=== PATIENT | male | born 1975 | race Caucasian/White ===

== ENCOUNTER 2017-08-20 16:55 | Day surgery (SDC) | payer OTHER ==
[2017-08-20 12:16] VITALS: TEMP 98
--- NOTE | 2017-08-20 13:21 | P.PCN ---
Date of Procedure: 08/20/17 Procedure(s) Performed: Procedure: Total colonoscopy. Preoperative diagnosis: Chronic intermittent rectal bleeding. Postoperative diagnosis: Posterior anal fissure not bleeding at the time of this exam, otherwise, exam to the cecum within normal limits. Preparation: HalfLytely prep. Sedation: Was provided by anesthesia. Brief clinical history: The patient is a 42-year-old male who is scheduled for this evaluation because of chronic intermittent rectal bleeding. This evaluation is to assess for neoplasia, inflammatory bowel disease or other pathology. Procedure: With the patient on his left lateral decubitus position and after informed consent and adequate sedation, the perianal area was inspected and it showed the posterior fissure which was not bleeding. No fistulas. There were no masses felt on digital rectal examination. The Olympus CFQ 160L video colonoscope was then inserted in the rectum in the usual fashion and advanced to the cecum. The mucosa appeared healthy. No polyps or tumors were seen or any obvious diverticular disease or other pathology. I retroflexed the endoscope in the rectum before the endoscope was withdrawn. The patient tolerated the procedure well. Plan: The patient was reassured. Discussed dietary measures and local care for his fissure. Further plans based on his course. I will keep you updated on his progress.
[2017-08-20 14:20] VITALS: BP 121/74; PULSE 78; RESP 20
[~2017-08-20 16:55] MED LIST: LACTATED RINGERS 1,000 ML IV ONE; LIDOCAINE 1% 20 ML VIAL (10MG/ML) FOR IV START INTRADERMA ONE; PROPOFOL 10 MG/ML 20 ML VIAL IV ONE
== END 2017-08-20 18:55 | disposition home or self-care (01) ==
LOC: ORWHC2ENDO 16:55
DX: K60.2 Anal fissure, unspecified (principal); J45.909 Unspecified asthma, uncomplicated; Z91.040 Latex allergy status
CPT/HCPCS: 45378; J2704

== ENCOUNTER 2018-01-22 18:05 | Observation (INO) | payer BC ==
[2018-01-22] MEDS ORDERED: SODIUM CHLORIDE 0.9% 1,000 ML IV STA (19:32)
[2018-01-22] MEDS ORDERED: MECLIZINE 12.5 MG TAB PO STA (19:32)
[2018-01-22] MEDS: SODIUM CHLORIDE 0.9% 1,000 ML IV STA ×2 (20:25→23:08)
[2018-01-22 20:44] LABS: INR 1.1 (<1.2); Prothrombin Time 10.4 sec (9.0-12.0)
[2018-01-22 20:46] LABS: Basophils % (A) 0 %; Eosinophils # (A) 0.3 k/uL (0-0.7); Eosinophils % (A) 3 %; HGB 14.3 gm/dL (13.0-17.5); Lymphocytes # (A) 1.8 k/uL (1.0-4.8); Lymphocytes % (A) 18 %; MCH 30.4 pg (25.0-35.0); MCHC 31.7 g/dL (31.0-37.0); Mean Platelet Volume 7.5; Monocytes # (A) 0.5 k/uL (0-1.0); Monocytes % (A) 5 %; Neutrophils # (A) 7.3 k/uL (1.3-7.7); Neutrophils % (A) 73 %; Platelet Count 279 k/uL (150-450); RBC 4.69 m/uL (4.30-5.90); RDW 12.1 % (11.5-15.5); WBC 10.1 k/uL (3.8-10.6)
[2018-01-22 20:49] LABS: ALT 32 U/L (21-72); AST 22 U/L (17-59); Albumin 4.5 g/dL (3.5-5.0); Alkaline Phosphatase 62 U/L (38-126); Anion Gap 6 mmol/L; Blood Urea Nitrogen 14 mg/dL (9-20); Calcium 9.5 mg/dL (8.4-10.2); Carbon Dioxide 26 mmol/L (22-30); Chloride 106 mmol/L (98-107); Glucose 107 mg/dL (74-99); Potassium 4.2 mmol/L (3.5-5.1); Sodium 138 mmol/L (137-145); Total Bilirubin 0.8 mg/dL (0.2-1.3); Total Protein 7.2 g/dL (6.3-8.2)
--- NOTE | 2018-01-22 21:01 | XR ---
EXAMINATION: XR chest 2V DATE AND TIME: 01/22/2018 8:10 PM CLINICAL INDICATION: Pneumonia TECHNIQUE: PA and lateral COMPARISON: None. FINDINGS: The lungs are clear. The pleural spaces are negative. The cardiac silhouette is not enlarged. The remainder of the mediastinal silhouette is unremarkable. The skeletal structures and soft tissues are negative for acute findings. IMPRESSION: NO ACUTE PROCESS.
--- NOTE | 2018-01-22 21:03 | CT ---
EXAMINATION: CT brain wo con DATE AND TIME: 01/22/2018 8:15 PM CLINICAL INDICATION: Pain Dizziness. TECHNIQUE: Standard departmental protocol. DLP: 1006.5 mGy-cm COMPARISON: None. FINDINGS: The calvarium is intact. There is no intracranial hemorrhage. There is no intracranial mass or mass effect. No definite new intra-axial or extra-axial attenuation defect. The paranasal sinuses, middle ear cavities, and mastoid sinus air cells are clear. The orbits are unremarkable. IMPRESSION: NO ACUTE PROCESS.
--- NOTE | 2018-01-22 21:43 | ED ---
Dizziness HPI - General Chief Complaint: Dizziness Stated Complaint: dizziness, nausea, vomiting Time Seen by Provider: 01/22/18 19:17 Source: patient Mode of arrival: ambulatory Limitations: no limitations - History of Present Illness Initial Comments: 42 years old male comes in with the dizziness he said he been dizzy for last 2 days he sent he feels that his gait is quite unsteady he been nauseous he has been using quite a large amount of Benadryl he said he has a ALLERGIES and he been using Benadryl 20 tablets every day and night is unable to walk a straight line is concerned about unsteady gait. He denies any headaches no blurred vision no slurred speech no chest pain no abdominal pain he is nauseous and he states he no symptoms of TIA or CVA - Related Data Home Medications Medication Instructions Recorded Confirmed FLUoxetine HCL [PROzac] 20 mg PO DAILY 01/22/18 01/22/18 Allergies Allergy/AdvReac Type Severity Reaction Status Date / Time latex AdvReac Anaphylaxis Verified 01/22/18 18:23 Review of Systems ROS Statement: Those systems with pertinent positive or pertinent negative responses have been documented in the HPI. ROS Other: All systems not noted in ROS Statement are negative. Past Medical History Past Medical History: Asthma History of Any Multi-Drug Resistant Organisms: None Reported Past Surgical History: No Surgical Hx Reported Past Psychological History: Bipolar, Depression Smoking Status: Current every day smoker Past Alcohol Use History: Occasional Past Drug Use History: Marijuana General Exam - General Exam Comments Initial Comments: General: The patient is awake and alert, GCS is 15, he looks dehydrated pale and tired Skin: Skin is warm and dry and no rashes or lesions are noted. Eye: Pupils are equal, round and reactive to light, extra-ocular movements are intact; there is normal conjunctiva bilaterally. Ears, nose, mouth and throat: It is some fluid behind the tympanic membrane on one side Neck: The neck is supple, there is no tenderness , no signs of any meningitis Cardiovascular: There is a regular rate and rhythm. No murmur, rub or gallop is appreciated. Respiratory: To auscultation bilateral, no wheezing no rhonchi no distress respiratory salas noticed Gastrointestinal: Soft, non-distended, non-tender abdomen without masses or organomegaly noted. There is no rebound or guarding present. Bowel sounds are unremarkable. Back: There is no tenderness to palpation in the midline. There is no obvious deformity. Musculoskeletal: Normal ROM, no tenderness, There is no pedal edema. There is no calf tenderness or swelling. No cords were appreciated. Neurological: CN II-XII intact, Cranial nerves III through XII are intact. There are no obvious motor or sensory deficits. Coordination appears grossly intact. Speech is normal. Psychiatric: Cooperative, appropriate mood & affect Limitations: no limitations Course Vital Signs 01/22/18 01/22/18 01/22/18 18:18 20:24 21:38 Temperature 98.1 F Pulse Rate 69 63 67 Respiratory 20 18 18 Rate Blood Pressure 140/91 153/86 124/72 O2 Sat by Pulse 99 97 98 Oximetry Upon reassessment noticed CBC, INR, troponin, comp his metabolic panel, head CT , chest x-ray are unremarkable EKG is normal sinus ventricular rate is 60 CT interval is 118 QRS duration is 114 QT/QTc is 48/108 review of this EKG does not reveal any ST elevation or ST depression noticed some told the face and now V4 V5 - Reevaluation(s) Reevaluation #2: Centering his dizziness and now unsteady gait and concerned about brainstem infarction patient be admitted to Dr. Miller service will consult neurology 01/22/18 21:47 Medical Decision Making - Lab Data Result diagrams: 01/22/18 20:22 01/22/18 20:22 Lab Results 01/22/18 01/22/18 01/22/18 Range/Units 20:22 20:22 20:22 WBC 10.1 (3.8-10.6) k/uL RBC 4.69 (4.30-5.90) m/uL Hgb 14.3 (13.0-17.5) gm/dL Hct 45.0 (39.0-53.0) % MCV 96.0 (80.0-100.0) fL MCH 30.4 (25.0-35.0) pg MCHC 31.7 (31.0-37.0) g/dL RDW 12.1 (11.5-15.5) % Plt Count 279 (150-450) k/uL Neutrophils % 73 % Lymphocytes % 18 % Monocytes % 5 % Eosinophils % 3 % Basophils % 0 % Neutrophils # 7.3 (1.3-7.7) k/uL Lymphocytes # 1.8 (1.0-4.8) k/uL Monocytes # 0.5 (0-1.0) k/uL Eosinophils # 0.3 (0-0.7) k/uL Basophils # 0.0 (0-0.2) k/uL PT (9.0-12.0) sec INR (<1.2) Sodium 138 (137-145) mmol/L Potassium 4.2 (3.5-5.1) mmol/L Chloride 106 (98-107) mmol/L Carbon Dioxide 26 (22-30) mmol/L Anion Gap 6 mmol/L BUN 14 (9-20) mg/dL Creatinine 0.70 (0.66-1.25) mg/dL Est GFR (CKD-EPI)AfAm >90 (>60 ml/min/1.73 sqM) Est GFR (CKD-EPI)NonAf >90 (>60 ml/min/1.73 sqM) Glucose 107 H (74-99) mg/dL Plasma Lactic Acid Gray 0.9 (0.7-2.0) mmol/L Calcium 9.5 (8.4-10.2) mg/dL Total Bilirubin 0.8 (0.2-1.3) mg/dL AST 22 (17-59) U/L ALT 32 (21-72) U/L Alkaline Phosphatase 62 (38-126) U/L Troponin I (0.000-0.034) ng/mL Total Protein 7.2 (6.3-8.2) g/dL Albumin 4.5 (3.5-5.0) g/dL 01/22/18 01/22/18 Range/Units 20:22 20:22 WBC (3.8-10.6) k/uL RBC (4.30-5.90) m/uL Hgb (13.0-17.5) gm/dL Hct (39.0-53.0) % MCV (80.0-100.0) fL MCH (25.0-35.0) pg MCHC (31.0-37.0) g/dL RDW (11.5-15.5) % Plt Count (150-450) k/uL Neutrophils % % Lymphocytes % % Monocytes % % Eosinophils % % Basophils % % Neutrophils # (1.3-7.7) k/uL Lymphocytes # (1.0-4.8) k/uL Monocytes # (0-1.0) k/uL Eosinophils # (0-0.7) k/uL Basophils # (0-0.2) k/uL PT 10.4 (9.0-12.0) sec INR 1.1 (<1.2) Sodium (137-145) mmol/L Potassium (3.5-5.1) mmol/L Chloride (98-107) mmol/L Carbon Dioxide (22-30) mmol/L Anion Gap mmol/L BUN (9-20) mg/dL Creatinine (0.66-1.25) mg/dL Est GFR (CKD-EPI)AfAm (>60 ml/min/1.73 sqM) Est GFR (CKD-EPI)NonAf (>60 ml/min/1.73 sqM) Glucose (74-99) mg/dL Plasma Lactic Acid Gray (0.7-2.0) mmol/L Calcium (8.4-10.2) mg/dL Total Bilirubin (0.2-1.3) mg/dL AST (17-59) U/L ALT (21-72) U/L Alkaline Phosphatase (38-126) U/L Troponin I <0.012 (0.000-0.034) ng/mL Total Protein (6.3-8.2) g/dL Albumin (3.5-5.0) g/dL Disposition Clinical Impression: Dizziness, Unsteady gait Disposition: ADMITTED IP TO THIS [facility] Condition: Good Referrals: Osvaldo Devlin MD [Primary Care Provider] - 1-2 days
[2018-01-22] MEDS ORDERED: NALOXONE 0.4 MG/ML 1 ML VIAL IV PRN (21:48)
[2018-01-22] MEDS ORDERED: ONDANSETRON 4 MG/2 ML VIAL IVP PRN (21:48)
[2018-01-22] MEDS ORDERED: ACETAMINOPHEN TAB 325 MG TAB PO PRN (21:48)
[2018-01-22] MEDS ORDERED: MECLIZINE 25 MG TAB PO PRN (21:51)
[2018-01-22] MEDS ORDERED: LORATADINE 10 MG TAB PO STA (21:52)
[2018-01-22] MEDS ORDERED: predniSONE 20 MG TAB PO STA (21:52)
[2018-01-22 22:05] LABS: Appearance,Urine Clear (Clear); Bilirubin,Urine Negative (Negative); Blood,Urine Negative (Negative); Color,Urine Light Yellow; Glucose,Urine (UA) Negative (Negative); Ketones,Urine Negative (Negative); Leukocyte Esterase,Urine Negative (Negative); Nitrite,Urine Negative (Negative); Protein,Urine Negative (Negative); Specific Gravity,Urine 1.009 (1.001-1.035); Urobilinogen,Urine <2.0 mg/dL (<2.0)
[2018-01-22 22:16] LABS: Amphetamine Screen,Urine Not Detected (NotDetected); Barbiturate Screen,Urine Not Detected (NotDetected); Benzodiazepines Screen,Urine Not Detected (NotDetected); Cocaine Screen,Urine Not Detected (NotDetected); Methadone Screen, Urine Not Detected (NotDetected); Opiate Screen,Urine Not Detected (NotDetected); Oxycodone Screen, Urine Not Detected (NotDetected); Phencyclidine Screen,Urine Not Detected (NotDetected); Tricyclic Antidepressant,Urine Not Detected (NotDetected); Urn Cannabinoid Scrn Detected (NotDetected)
[2018-01-22] MEDS ORDERED: TEMAZEPAM 15 MG CAP PO PRN (23:00)
[2018-01-22] MEDS ORDERED: HYDROcodone/APAP 5-325MG 1 EACH TAB PO PRN (23:00)
[2018-01-22] MEDS ORDERED: HYDROmorphone 1 MG/ML 1 ML SYRINGE IVP PRN (23:01)
[2018-01-22] MEDS: NICOTINE 14MG/24HR PATCH TRANSDERM SCH (23:08)
[2018-01-22] MEDS: PANTOPRAZOLE 40 MG/10 ML VIAL IVP SCH (23:23)
[2018-01-22] MEDS ORDERED: LORazepam 2 MG/ML INJ IV PRN (23:55)
--- NOTE | 2018-01-23 00:03 | HP ---
HISTORY AND PHYSICAL DATE OF SERVICE: 01/22/2018 CHIEF COMPLAINT: Dizziness, nausea and vomiting. HISTORY OF PRESENT ILLNESS: This 42-year-old gentleman with a past medical history of asthma, history of bipolar depression, history of nicotine dependence and THC, being followed by Dr. Devlin in the outpatient setting, apparently was dizzy for the last 2 days. Patient was quite unsteady and the patient also had patient had itching and the patient was taking a large amount of Benadryl. Patient is throwing up and patient came to [facility] and was admitted for further evaluation and treatment. There is no history of any fever, rigors, chills. No history of headache, loss of consciousness, seizures. Initial CT scan showed no acute abnormality. PAST MEDICAL HISTORY: History of asthma, history of bipolar depression, history nicotine dependence. MEDICATIONS PRIOR TO ADMISSION: Include Prozac 20 mg daily. ALLERGIES: LATEX. FAMILY HISTORY: No history of heart disease or strokes in the family. SOCIAL HISTORY: History of smoking. No history of alcohol intake. REVIEW OF SYSTEMS: ENT: No diminished hearing, diminished vision. Otherwise as mentioned earlier. CARDIOVASCULAR: No angina, palpitations. RESPIRATORY: No cough or hemoptysis. GI: As mentioned earlier. : No dysuria. NERVOUS: No numbness or weakness. ALLERGY/IMMUNOLOGY: No asthma or hay fever. MUSCULOSKELETAL: As mentioned earlier. HEMATOLOGY/ONCOLOGY: No history of anemia. ENDOCRINE: No history of diabetes, hypothyroidism. CONSTITUTIONAL: As mentioned earlier. DERMATOLOGY: Negative. RHEUMATOLOGY: Negative. PSYCHIATRY: As mentioned earlier. PHYSICAL EXAMINATION: Alert, oriented x3. Pulse 66, blood pressure 140/82, respirations 16, temperature 97.7, pulse ox 98 percent on room air. HEENT: Conjunctivae normal. Oral mucosa moist. NECK: No jugular venous distention. No carotid bruits. No lymph node enlargement. CARDIOVASCULAR: S1, S2 muffled. RESPIRATORY: Breath sounds diminished in the bases. No rhonchi. No crackles. ABDOMEN: Soft, nontender. No mass palpable. LEGS: No edema. No swelling. NERVOUS SYSTEM: Higher functions as mentioned earlier. Moves all 4 limbs. No focal motor or sensory deficits. LYMPHATIC: No lymphadenopathy in neck or axillae. SKIN: No ulcer, rash or bleeding. LABS: CBC, BMP within normal limits. Glucose 107. THC is positive. ASSESSMENT: 1. Incessant vomiting, possible acute gastritis. 2. Asthma. 3. Bipolar, anxiety and depression. 4. History of nicotine dependence. 5. History of THC. RECOMMENDATIONS AND DISCUSSION: In this 42-year-old gentleman who presented with multiple complex medical issues, we will monitor the patient closely, continue the current medical management and continue symptomatic treatment. Will initiate proton pump inhibitors, symptomatic treatment. Otherwise, otherwise, smoking cessation advice has been given. Neuro checks. We will closely monitor. Prognosis guarded because of multiple complex medical issues. Further recommendations to follow. Neurology evaluation also has been sought and I discussed with the patient. Smoking cessation has been advised. See orders for further details. MMODL / IJN: [id number] /
[2018-01-23 07:10] LABS: Basophils % (A) 0 %; Eosinophils # (A) 0.1 k/uL (0-0.7); Eosinophils % (A) 1 %; HCT 42.7 % (39.0-53.0); HGB 14.3 gm/dL (13.0-17.5); Lymphocytes # (A) 1.3 k/uL (1.0-4.8); Lymphocytes % (A) 14 %; MCH 31.7 pg (25.0-35.0); MCHC 33.4 g/dL (31.0-37.0); Mean Platelet Volume 7.9; Monocytes # (A) 0.4 k/uL (0-1.0); Monocytes % (A) 4 %; Neutrophils # (A) 7.2 k/uL (1.3-7.7); Neutrophils % (A) 80 %; Platelet Count 258 k/uL (150-450); RDW 11.8 % (11.5-15.5); WBC 8.9 k/uL (3.8-10.6)
[2018-01-23 07:30] LABS: Anion Gap 5 mmol/L; Calcium 8.8 mg/dL (8.4-10.2); Carbon Dioxide 26 mmol/L (22-30); Chloride 108 mmol/L (98-107); Glucose 120 mg/dL (74-99); Sodium 139 mmol/L (137-145)
[2018-01-23 07:43] LABS: Blood Urea Nitrogen 12 mg/dL (9-20); Potassium 4.5 mmol/L (3.5-5.1)
[2018-01-23] MEDS: NICOTINE 14MG/24HR PATCH TRANSDERM SCH (09:43)
[2018-01-23] MEDS: FLUoxetine HCL 20 MG CAP PO SCH (09:50)
[2018-01-23] MEDS: PANTOPRAZOLE 40 MG/10 ML VIAL IVP SCH ×2 (09:50→20:32)
[2018-01-23] MEDS: ALPRAZolam 0.25 MG TAB PO PRN ×2 (09:57→20:32)
--- NOTE | 2018-01-23 15:33 | P.CN ---
Psychiatric Consult - . Consult date: 01/23/18 Consult:: 01/23/18 15:07 Identification: Patient is a 42-year-old male who presented to the emergency room with reports of dizziness, nausea and vomiting after having been taking 20- 30 tabs of Benadryl per day over the last 3 weeks. Reason for Consult: Suicidal ideation, depression History of Present Illness: Patient states that he's had ALLERGY problems for greater than 20 years and has seen multiple physicians in the area. He states that he is to see someone at [facility] due to what he describes as either hives and/or rashes when he wears certain clothing, describes 2 weeks ago was wearing R sleeves at work and started having a rash and itching and states that this is when he began taking the Benadryl. States that he is been feeling like a zombie and was feeling dizzy and unbalanced yesterday and presented to the emergency room. Patient states that he responded to the question regarding suicidal ideation about a time in the past when he had those thoughts and it had a shot gun laying across his lap. Patient denies any history of suicide attempts. Patient describes from the fourth to the 11th grade being on multiple medications such as Ritalin, and Prozac for ADHD and bipolar disorder. Patient states that he was drunk to the point where he was drooling and a zombie during school. He states that he was admitted here once when he was 19 years of age but can't tell me what the reason was for. Patient states that he used to cut himself and burning himself at that time but these were not in suicide attempts. Patient states as a child he would destroy property get into fights with people and states that he graduated with honors. Patient has a difficult time endorsing manic symptoms in the past and does not give any history of manic symptoms as an adult. Patient does not endorse a history of psychotic symptoms, paranoia, or anxiety and states that he has episodes of depression that have not been severe as an adult and last only 1-2 days. Patient has not been on medication since around the age of 19 and states that several months ago he sought out his primary care physician who started him on Prozac as the patient was feeling under a lot of stress at work due to the itching and other difficulties that he's had. Patient states that he also has had some stress with his children. Patient does not endorse a history of psychotic symptoms, anxiety symptoms and most of his psychiatric history is from 19 years of age and younger. Patient has not been treated since the age of 19 and has no other admissions. Patient states that he restarted Prozac at 20 mg and feels that it is been beneficial in helping him with his stress. He states that he is feeling less overwhelmed, his sleep remains good and he is been able to work. Past Psychiatric History: Patient reports one prior psychiatric admission here at the age of 19, he denies any suicide attempt history and states that he was on multiple medications from the age of 11 to about 17. Patient states that he stopped all his medications when he was 19 years of age and just recently restarted Prozac 20 mg a day prescribed by his primary care physician with he says good results and no side effects Past Medical/Surgical History: Patient had asthma as a child Family History: Patient states is no psychiatric history in the family, but alcohol and drug abuse are on both paternal and maternal side of the family and completed suicides. Social History: Patient's parents are both alive and , he has 1 brother. He completed high school states he graduated with honors and attended college for several years but never completed it. 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 Patient states he's worked in [employer] for the last 8 years. His first marriage lasted 10 years he has 2 children ages 10 and 15, he's been for the second time for one year. He and his live with her 4 children from her prior marriage ages 9-15 and his 2 children are with them 50% of the time. He reports no financial problems and relationship with his is a good one. He reports no abuse history Substance Use History: Patient states that he began using alcohol as an adult and probably drinks less than a sixpack a week, he used marijuana since the age of 11 almost on a daily basis and then stated to me that he dislikes falling asleep sober because he has nightmares. Patient states he used cocaine from age [age] on an infrequent basis. States that he's tried methamphetamines in the past, opiates, benzodiazepine, and amphetamines in the past and no IV drug use. States that he's tried synthetic care when in the past. Patient states that he smokes occasionally. Legal History: Patient states as a minor he was charged with multiple counts of property damage, fighting Mental status: Appearance/Attitude: Patient has multiple tattoos, is sitting up in bed in no acute distress, makes intermittent eye contact and was cooperative Behavior: Patient did not display any psychomotor agitation or retardation, patient was not itching or scratching during my exam. Speech/Language: Patient's speech is spontaneous of normal volume and rhythm and he is coherent Thought Process: Patient is goal-directed, no loose association or flight of ideas Thought Content: Patient denies any auditory or visual hallucinations and no delusions or paranoid ideation were elicited. Patient states that he has had difficulties with ALLERGIES over the last 20 years is seen multiple admissions in the area and is to see a professional benefits sales consultant at [facility] some time in the near future. Patient has been taking 20-30 tabs of Benadryl a day for the last several weeks continue trazodone his itching and rash on his forearms. Patient states that he has no difficulty sleeping at home had recently been feeling overwhelmed and stressed due to the itching as well as difficulties with his children and so he restarted Prozac one month ago with good results. Suicidal/Homicidal Ideation: Patient denied any current suicidal or homicidal ideation Sensorium/Cognition: Patient is alert and oriented to person, place, and time and his recent and remote memory are grossly intact Mood/Affect: Patient's mood is euthymic and his affect is appropriate Insight/Judgment: Patient insight and judgment are fair Assessment: Patient presented to the emergency room was side effects from taking 20-30 tabs of Benadryl daily for the last several weeks to try to control itching and a rash which he states he's had difficulties with for the last number of years. Patient states that he is had difficulties with ALLERGIC reactions but can't say what he is ALLERGIC to, stating perhaps at his own sweat , states that some clothing makes it bothered, states that wearing a watch. Patient has a history of psychiatric treatment prior to finishing high school on multiple medications for ADHD, depression and he states diagnosis of bipolar disorder but stopped all of his medications at the age of 19. Patient has not been on medication since that time and recently restarted Prozac due to feeling stressed and overwhelmed at home and due to his itching and rash. Patient is currently not expressing any psychotic symptoms, depressive symptoms no current suicidal or homicidal ideation and no evidence of manic symptoms or anxiety. 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 Patient can continue on his Prozac and follow-up with his primary care physician as needed. Patient is aware of outpatient counseling services should he require such in the future. Would be cautious in using benzodiazepines in this patient and suggests not discharging him on such. Patient had no other concerns at this time and I will sign off the case.
--- NOTE | 2018-01-23 16:43 | PN ---
PROGRESS NOTE DATE OF SERVICE: 01/23/2018 This 42-year-old gentleman who was admitted with incessant vomiting, acute gastritis is being closely monitored. The patient is n.p.o. at this time. No chest pain. No palpitations. No fever. The patient had some dizziness yesterday. Patient has some itching. The patient is not orthostatic hypotension. PHYSICAL EXAM: Alert and oriented x3. Pulse is 69, blood pressure is 140/92, respiration 12, temperature is normal, pulse ox 97% on room air. HEENT: Conjunctivae normal. Oral mucosa dry. NECK: No jugular venous distention. No carotid bruit. No lymph node enlargement. CARDIOVASCULAR: S1, S2. RESPIRATORY: Breath sounds diminished in the bases. No rhonchi. No crackles. ABDOMEN: Soft, mild diffuse discomfort on epigastrium. Otherwise no mass palpable. LEGS: No edema, no swelling. NERVOUS SYSTEM: Higher functions as mentioned earlier. Moves all four limbs. No focal motor deficits. LYMPHATICS: No lymphadenopathy in the neck, axillae, groin. SKIN: No ulcer, rash or bleeding. LABS: CBC and BMP within normal limits. Drug screen noted. ASSESSMENT: 1. Incessant vomiting, possible acute gastritis. 2. Dehydration. 3. History of asthma. 4. Bipolar, anxiety and depression. 5. History of nicotine dependence. 6. History of THC. RECOMMENDATIONS AND DISCUSSION: I recommend to continue current management and symptomatic treatment. I would recommend increase the p.o. intake and continue conservative line of treatment. Guarded prognosis because of multiple complex medical issues. Further recommendations to follow. MMODL / IJN: [id number] /
--- NOTE | 2018-01-23 21:24 | MR ---
EXAMINATION TYPE: MR brain wo con DATE OF EXAM: 01/23/2018 COMPARISON: CT 01/22/2018 at 8:07 PM HISTORY: Severe dizziness x 3 days, headaches Standard multiplanar, multisequence MRI departmental protocol Multiplanar, multisequence images of the were acquired. Diffusion weighted imaging was performed. FINDINGS: There is no restricted diffusion to suggest acute or subacute infarction. There is no mass or mass effect or signal characteristic abnormality. The vascular flow void pattern is negative. Trudy marcial of the intra-axial and extra-axial examination is unremarkable. Calvarium is negative. The paranasal sinuses and mastoid sinus air cells and middle ear cavities are clear. Orbits are unremarkable. IMPRESSION: NO ACUTE PROCESS.
[2018-01-24 00:45] VITALS: TEMP 97.7
[2018-01-24 07:54] LABS: Basophils % (A) 0 %; Eosinophils # (A) 0.2 k/uL (0-0.7); Eosinophils % (A) 3 %; HCT 43.3 % (39.0-53.0); HGB 13.6 gm/dL (13.0-17.5); Lymphocytes # (A) 1.6 k/uL (1.0-4.8); Lymphocytes % (A) 23 %; MCH 30.1 pg (25.0-35.0); MCHC 31.5 g/dL (31.0-37.0); MCV 95.7 fL (80.0-100.0); Mean Platelet Volume 7.3; Monocytes # (A) 0.4 k/uL (0-1.0); Monocytes % (A) 5 %; Neutrophils # (A) 4.5 k/uL (1.3-7.7); Neutrophils % (A) 67 %; Platelet Count 236 k/uL (150-450); RBC 4.52 m/uL (4.30-5.90); RDW 11.9 % (11.5-15.5); WBC 6.8 k/uL (3.8-10.6)
[2018-01-24] MEDS: ALPRAZolam 0.25 MG TAB PO PRN (07:56)
[2018-01-24 08:05] LABS: Anion Gap 5 mmol/L; Blood Urea Nitrogen 11 mg/dL (9-20); Calcium 9.1 mg/dL (8.4-10.2); Carbon Dioxide 28 mmol/L (22-30); Chloride 106 mmol/L (98-107); Glucose 100 mg/dL (74-99); Potassium 4.5 mmol/L (3.5-5.1); Sodium 139 mmol/L (137-145)
--- NOTE | 2018-01-24 09:35 | CONS ---
CONSULTATION DATE OF CONSULTATION: 01/23/2018. CHIEF COMPLAINT: Dizziness. HISTORY OF PRESENT ILLNESS: Mr. Wu is a 42-year-old, male, who is being evaluated today on 01/23/2018 by the neurology service per the request of Dr. Miller for dizziness. The patient states that he woke up to go to work yesterday and noticed that he is significantly dizzy and off balance. He reported motion sensation but denies any actual spinning. When the symptoms did not improve throughout the day, he was brought into [facility] Emergency Room for further workup and management. He states that he has been taking significant amounts of Benadryl over the counter due to symptoms of itching on his body. He states that he was exposed to excessive heat at work and was having a lot of itching in his torso and upper extremities. The Benadryl was helping but he was having to take excessive amounts of over the counter capsules. A CT scan of the brain was done in the emergency room, which was normal. His CBC, comprehensive metabolic profile, cardiac enzymes and urinalysis were all reviewed and were normal. His urine drug screen was positive for marijuana. At the time of my evaluation, he is lying in his bed and appears to be in no acute distress. He reports significant improvement in his symptoms, but he still has some feeling of disequilibrium. He denies any tinnitus or hearing loss. He denies any previous symptoms similar to this. PAST MEDICAL HISTORY: Asthma, bipolar disorder. FAMILY HISTORY: Noncontributory. SOCIAL HISTORY: He does admit to occasional marijuana use. He has a history of smoking. He denies any alcohol or IV drug use. HOME MEDICATIONS: Prozac. ALLERGIES: LATEX. REVIEW OF SYSTEM: As mentioned above and otherwise negative. PHYSICAL EXAM: Vital signs show a temperature of 98.4, pulse 96, respirations 16, blood pressure 169/90. GENERAL APPEARANCE: The patient is a well-developed male, who appears to be in no acute distress. HEENT: Normocephalic, atraumatic, no facial asymmetry is seen. Extraocular muscles are intact with no nystagmus seen. Neck is supple with no masses felt. CARDIOVASCULAR: Regular rate and rhythm. ABDOMEN: Nontender, nondistended. Extremities showed no edema or clubbing. NEUROLOGICAL EXAM: The patient is alert, aware and oriented x3. Speech and language are normal. Strength is full in all 4 extremities. Sensory exam was normal to light touch in all 4 extremities. No tremors or seizure-like activity is seen. No facial asymmetry is noticed on cranial nerve testing. IMPRESSION: 1. Dizziness. 2. Gait instability. 3. Medication adverse effect. 4. Elevated blood pressure. RECOMMENDATION: The patient's dizziness and disequilibrium has improved but has not resolved. I do believe that this is an adverse effect of the Benadryl that he has been taking as mentioned above. I did recommend to him to discontinue the Benadryl and he should be evaluated for the significant itching that he has been experiencing. I will order an MRI of the brain and EEG to rule out any other etiologies. Continue the rest of your current workup and management. I will continue to follow with you. Further recommendations to follow. Thank you for allowing me to participate in the care of your patient. If you have any questions, please feel free to contact me. FADY / JOYA: [id number] /
[2018-01-24] MEDS: NICOTINE 14MG/24HR PATCH TRANSDERM SCH (10:41)
[2018-01-24] MEDS: FLUoxetine HCL 20 MG CAP PO SCH (10:53)
[2018-01-24] MEDS: PANTOPRAZOLE 40 MG/10 ML VIAL IVP SCH (10:54)
[2018-01-24 11:01] VITALS: BP 143/81; PULSE 69; RESP 16
[2018-01-24] MEDS ORDERED: HYDROmorphone 2 MG TAB PO PRN (15:39)
--- NOTE | 2018-01-24 18:32 | DS ---
DISCHARGE SUMMARY FINAL DIAGNOSES: 1. Incessant vomiting with possible acute gastritis, improved. 2. Dehydration, improved. 3. History of asthma. 4. History of bipolar, anxiety and depression. 5. History of nicotine dependence. 6. History of THC. DISCHARGE DISPOSITION: The patient will be discharged in stable condition with guarded prognosis. HISTORY OF PRESENT ILLNESS: This 42-year-old gentleman who presented with multiple complex medical issues including ovarian cyst, vomiting and gastritis. Patient treated symptomatically. Patient on Protonix and IV fluids. Patient improved significantly. Patient was evaluated by neurology, Dr. Velasco. MRI of the brain did not show any acute process. EEG is pending at this time. Dr. Velasco recommended outpatient followup. On exam, vitals are stable. Cardiovascular: S1, S2. Abdomen: Soft. Nervous System: No focal deficit. The patient also had dizziness and gait dysfunction, possibly secondary to medication effect. The patient was using multiple doses of Benadryl. DISCHARGE ADVICE: 1. Diet is cardiac. 2. Activity limited until follow up. 3. Follow with Dr. Devlin in 2-3 days. 4. Follow with [facility]. 5. Follow up with Dr. Velasco as recommended. MEDICATIONS: 1. Prozac 20 mg p.o. daily. 2. Tylenol p.r.n. 3. Habitrol 14 daily. 4. Zofran 4 mg q.8h p.r.n. 5. Protonix 40 mg p.o. b.i.d. Once again, the patient is discharged in stable condition with guarded prognosis. MMODL / IJN: [id number] /
--- NOTE | 2018-01-27 20:27 | EEG ---
ELECTROENCEPHALOGRAM REPORT DATE OF SERVICE: 01/24/2018 REASON FOR TESTING: Dizziness. DESCRIPTION OF THE PROCEDURE: This EEG was performed using a 21-channel digital electroencephalograph, following international 10-20 system. DESCRIPTION OF THE RECORDING: From the beginning of the tracing, and with the patient's eyes closed, the background rhythm was mostly consisting of 9-10 Hz alpha frequency in the posterior occipital leads. No obvious asymmetry is seen. Photic stimulation was performed with a good driving response seen. No pathological waves were elicited. Hyperventilation was not performed. Rare movement artifacts are seen. The patient remains awake throughout the tracing. No epileptiform discharges were seen. His EKG lead showed a regular rate and rhythm. INTERPRETATION: This awake EEG can be considered within normal limits. There was no asymmetry seen. No epileptiform discharges were noticed. The absence of epileptiform discharges does not rule out the diagnosis of epilepsy; therefore clinical correlation is recommended. MMCARITOL / IJAnna: [id number] /
== END 2018-01-24 18:45 | disposition home or self-care (01) ==
LOC: EC 18:05 → 3SUR 21:48
PROVIDERS: ADMIT Hospitalist; ATTEND Hospitalist
DX: R11.2 Nausea with vomiting, unspecified (principal); E86.0 Dehydration; J45.909 Unspecified asthma, uncomplicated; F31.9 Bipolar disorder, unspecified; F41.9 Anxiety disorder, unspecified; Z87.891 Personal history of nicotine dependence; R42 Dizziness and giddiness; R26.81 Unsteadiness on feet; L29.9 Pruritus, unspecified; R03.0 Elevated blood-pressure reading, without diagnosis of hypertension; T45.0X5A Adverse effect of antiallergic and antiemetic drugs, initial encounter; Z79.899 Other long term (current) drug therapy; Z91.040 Latex allergy status; Z81.1 Family history of alcohol abuse and dependence; Z81.3 Family history of other psychoactive substance abuse and dependence
CPT/HCPCS: 99285; 96376 ×2; 96361 ×3; 96374; 96375; 36415; 95816; 93005; 80053; 80048 ×2; 83605; 84484; 85025 ×3; 85610; 81003; 80306; 71046; 70450; 70551; G0378 ×3; J1170; J7512; C9113 ×3

== ENCOUNTER 2018-09-14 23:10 | Emergency (ER) | payer BC ==
[2018-09-14] MEDS ORDERED: methylPREDNISolone SOD SUCCI 125 MG/2 ML VIAL IV STA (23:39)
[2018-09-14] MEDS ORDERED: diphenhydrAMINE 50 MG/ML 1 ML VIAL IVP STA (23:39)
[2018-09-14] MEDS ORDERED: FAMOTIDINE 20 MG/2 ML VIAL IV STA (23:39)
[2018-09-15] MEDS ORDERED: KETOROLAC 30 MG/ML 1 ML VIAL IVP STA (00:28)
--- NOTE | 2018-09-15 00:28 | ED ---
General Adult HPI - General Source: patient, family, RN notes reviewed Mode of arrival: ambulatory Limitations: no limitations <Andrea Moreland P - Last Filed: 09/15/18 01:15> <Katarzyna Venegas P - Last Filed: 09/15/18 02:35> - General Chief complaint: Skin/Abscess/Foreign Body Stated complaint: itching all over Time Seen by Provider: 09/14/18 23:21 - History of Present Illness Initial comments: 43-year-old female presents to the emergency department for a chief itching. Patient states this has been ongoing for years. States that tonight it is keeping him awake and he feels like his skin is burning. Patient states he has been evaluated by multiple dermatology specialists without a diagnosis. There is possibility that he is ALLERGIC to his sweat. Patient unsure about what helps at this point. States he would just like something to help him sleep. Denies any swelling of the lips tongue or throat. Denies any fevers or chills. Patient has no other complaints at this time including shortness of breath, chest pain, abdominal pain, nausea or vomiting, headache, or visual changes. (Andrea Moreland) - Related Data Home Medications Medication Instructions Recorded Confirmed FLUoxetine HCL [PROzac] 40 mg PO DAILY 09/14/18 09/14/18 Multivitamin,Therapeutic [Thera] 1 tab PO DAILY 09/14/18 09/14/18 Previous Rx's Medication Instructions Recorded hydrOXYzine HCL [Atarax] 25 mg PO TID PRN #20 tab 09/15/18 Allergies Allergy/AdvReac Type Severity Reaction Status Date / Time latex AdvReac Anaphylaxis Verified 09/14/18 23:27 Review of Systems ROS Other: All systems not noted in ROS Statement are negative. <Andrea Moreland P - Last Filed: 09/15/18 01:15> ROS Other: All systems not noted in ROS Statement are negative. <Katarzyna Venegas P - Last Filed: 09/15/18 02:35> ROS Statement: Those systems with pertinent positive or pertinent negative responses have been documented in the HPI. Past Medical History Past Medical History: Asthma Additional Past Medical History / Comment(s): Athletic Asthma as a child. Itching-pt. supposed to have appt. at [facility] to investigate. Smoker- occasionaly. Social Drinker History of Any Multi-Drug Resistant Organisms: None Reported Past Surgical History: No Surgical Hx Reported Past Anesthesia/Blood Transfusion Reactions: No Reported Reaction Past Psychological History: Bipolar, Depression Smoking Status: Current some day smoker Past Alcohol Use History: Occasional Past Drug Use History: Marijuana - Past Family History Father Family Medical History: Cancer, Hypertension Mother Family Medical History: Cancer, Diabetes Mellitus, Hypertension, Thyroid Disorder Additional Family Medical History / Comment(s): Vertigo <Andrea Moreland P - Last Filed: 09/15/18 01:15> General Exam Limitations: no limitations General appearance: alert, in no apparent distress Head exam: Present: atraumatic, normocephalic, normal inspection Eye exam: Present: normal appearance, PERRL, EOMI. Absent: scleral icterus, conjunctival injection, periorbital swelling ENT exam: Present: normal exam, mucous membranes moist Neck exam: Present: normal inspection, full ROM. Absent: tenderness, meningismus, lymphadenopathy Respiratory exam: Present: normal lung sounds bilaterally. Absent: respiratory distress, wheezes, rales, rhonchi, stridor Cardiovascular Exam: Present: regular rate, normal rhythm, normal heart sounds. Absent: systolic murmur, diastolic murmur, rubs, gallop, clicks Neurological exam: Present: alert, oriented X3, CN II-XII intact Psychiatric exam: Present: normal affect, normal mood Skin exam: Present: rash (small erythematous macular lesions noted on bilateral arms and neck, neg nikolsky, no spreading redness or signs to indicate infection or cellulitis.) <Andrea Moreland P - Last Filed: 09/15/18 01:15> Course Vital Signs 09/14/18 09/15/18 23:13 01:24 Temperature 97.5 F L 97 F L Pulse Rate 66 79 Respiratory 18 18 Rate Blood Pressure 143/94 144/74 O2 Sat by Pulse 100 97 Oximetry Medical Decision Making <Andrea Moreland P - Last Filed: 09/15/18 01:15> <Katarzyna Venegas P - Last Filed: 09/15/18 02:35> - Medical Decision Making 43-year-old male with chronic itching presents to the emergency department for itching all over. Patient states he feels like his skin and burning. Patient states this has been happening since he was 8 years old but seems to be worsening. Patient has seen multiple dermatologists for this without diagnosis. On exam patient does have erythematous macular lesions noted of the upper extremities and neck. Patient was given Benadryl, Pepcid, slightly Medrol without relief. Patient given Toradol. Minimal relief. At this time I do not see an emergent cause for this itching. He will follow up with primary care in 1-2 days. He will return here if he has any worsening symptoms. Patient will be given a prescription of Atarax to see if that helps him at home. (Andrea Moreland) I was available for consultation in the emergency department. The history and physical exam were done by the midlevel provider. I was consulted for this patient's care. I reviewed the case with the midlevel provider and based on their presentation of the patient, I agree with the assessment, medical decision making and plan of care as documented. (Katarzyna Venegas) Disposition Is patient prescribed a controlled substance at d/c from ED?: No Time of Disposition: 01:16 <Andrea Moreland P - Last Filed: 09/15/18 01:15> <Katarzyna Venegas - Last Filed: 09/15/18 02:35> Clinical Impression: Itching Disposition: HOME SELF-CARE Condition: Good Instructions (If sedation given, give patient instructions): Acute Rash (ED) Additional Instructions: Please take Atarax as needed for itching. Do not drive or operate machinery when taking Atarax. Follow up with dermatology or primary care in 1-2 days. Return if you have any worsening symptoms. Prescriptions: hydrOXYzine HCL [Atarax] 25 mg PO TID PRN #20 tab PRN Reason: Itching Referrals: Osvaldo Devlin MD [Primary Care Provider] - 1-2 days Ronal Reynaga MD [STAFF PHYSICIAN] - 1-2 days
[2018-09-15 01:09] VITALS: RESP 18
[2018-09-15 01:24] VITALS: BP 144/74; PULSE 79; TEMP 97
== END 2018-09-15 01:24 | disposition home or self-care (01) ==
LOC: EC 23:10
DX: L29.9 Pruritus, unspecified (principal); F31.9 Bipolar disorder, unspecified; F17.200 Nicotine dependence, unspecified, uncomplicated; Z91.040 Latex allergy status; Z79.899 Other long term (current) drug therapy
CPT/HCPCS: 99283; 96374; 96375 ×3; J1200; J2930; J1885

== ENCOUNTER 2019-10-08 08:31 | Inpatient (IN) | payer BC, MEDICAID ==
[2019-10-08] MEDS ORDERED: HYDROmorphone 0.5 MG/0.5 ML SYRINGE IVP STA (08:45)
[2019-10-08] MEDS ORDERED: PANTOPRAZOLE 40 MG/10 ML VIAL IVP STA (08:45)
[2019-10-08] MEDS ORDERED: SODIUM CHLORIDE 0.9% 1,000 ML IV STA (08:45)
[2019-10-08] MEDS ORDERED: ONDANSETRON 4 MG/2 ML VIAL IVP STA (08:45)
--- NOTE | 2019-10-08 08:50 | ED ---
GI Bleed HPI - General Chief complaint: GI Bleed Stated complaint: Abd Pain Time Seen by Provider: 10/08/19 08:38 Source: patient, RN notes reviewed, old records reviewed Mode of arrival: ambulatory Limitations: no limitations - History of Present Illness Initial comments: This is a 44-year-old male who presents emergency department today with concern for GI bleed. Patient reportedly has had some dark tarry stools for the past 2 weeks as well as some episodes of coffee-ground emesis. Patient reports that he's had a history of suspected ulcer 16 years ago. He states that he was never really followed up at that time and the symptoms resolved. Patient reports over the past week he's been having an occasional drink at night for the past few weeks. He states he believes that this is what caused a GI discomfort and concern for bleed. Patient reports he is not on blood thinners. - Related Data Home Medications Medication Instructions Recorded Confirmed FLUoxetine HCL [PROzac] 40 mg PO DAILY 09/14/18 09/14/18 Multivitamin,Therapeutic [Thera] 1 tab PO DAILY 09/14/18 09/14/18 Previous Rx's Medication Instructions Recorded hydrOXYzine HCL [Atarax] 25 mg PO TID PRN #20 tab 09/15/18 Allergies Allergy/AdvReac Type Severity Reaction Status Date / Time No Known Allergies Allergy Verified 10/08/19 08:37 Review of Systems ROS Statement: Those systems with pertinent positive or pertinent negative responses have been documented in the HPI. ROS Other: All systems not noted in ROS Statement are negative. Past Medical History Past Medical History: Asthma Additional Past Medical History / Comment(s): Athletic Asthma as a child. Itching-pt. supposed to have appt. at [facility] to investigate. Smoker- occasionaly. Social Drinker History of Any Multi-Drug Resistant Organisms: None Reported Past Surgical History: No Surgical Hx Reported Additional Past Surgical History / Comment(s): Hemroid removal-11/19 Past Anesthesia/Blood Transfusion Reactions: No Reported Reaction Past Psychological History: Bipolar, Depression Smoking Status: Current some day smoker Past Alcohol Use History: Occasional Past Drug Use History: Marijuana - Past Family History Father Family Medical History: Cancer, Hypertension Mother Family Medical History: Cancer, Diabetes Mellitus, Hypertension, Thyroid Disorder Additional Family Medical History / Comment(s): Vertigo General Exam - General Exam Comments Initial Comments: 44-year-old male. Alert and oriented. No distress. Limitations: no limitations General appearance: alert, in no apparent distress Head exam: Present: atraumatic Eye exam: Present: normal appearance, PERRL, EOMI. Absent: scleral icterus, conjunctival injection, periorbital swelling ENT exam: Present: normal exam, mucous membranes moist Neck exam: Present: normal inspection. Absent: tenderness, meningismus, lymphadenopathy Respiratory exam: Present: normal lung sounds bilaterally. Absent: respiratory distress, wheezes, rales, rhonchi, stridor Cardiovascular Exam: Present: regular rate, normal rhythm, normal heart sounds. Absent: systolic murmur, diastolic murmur, rubs, gallop, clicks GI/Abdominal exam: Present: soft, tenderness (epgiastric tenderness), normal bowel sounds. Absent: distended, guarding, rebound, rigid Extremities exam: Present: normal inspection, full ROM, normal capillary refill. Absent: tenderness, pedal edema, joint swelling, calf tenderness Back exam: Present: normal inspection Neurological exam: Present: alert, oriented X3, CN II-XII intact Psychiatric exam: Present: normal affect, normal mood Course Vital Signs 10/08/19 08:32 Temperature 98.4 F Pulse Rate 84 Respiratory 18 Rate Blood Pressure 135/84 O2 Sat by Pulse 99 Oximetry Medical Decision Making - Medical Decision Making 44-year-old male presents emergency room today for epigastric abdominal pain, concerns for dark stools as well as some episodes of dark emesis. He is concerned this is related to GI bleed from alcohol use. This is occult test is negative. Hemoglobin is stable at 15. Patient does have evidence of pancreatitis with lipase greater than 1800. Patient will be started on IV fluids. He is resting comfortably in bed after protonic Zofran and 0.5 of Dilaudid. Patient will be admitted at this time. Discussed the case with Dr. Dunbar and discussed the case with Dr. Rogers - Lab Data Result diagrams: 10/08/19 08:55 10/08/19 08:55 Lab Results 10/08/19 10/08/19 10/08/19 Range/Units 08:55 08:55 08:55 WBC 9.4 (3.8-10.6) k/uL RBC 4.70 (4.30-5.90) m/uL Hgb 15.1 (13.0-17.5) gm/dL Hct 44.1 (39.0-53.0) % MCV 93.9 (80.0-100.0) fL MCH 32.0 (25.0-35.0) pg MCHC 34.1 (31.0-37.0) g/dL RDW 11.5 (11.5-15.5) % Plt Count 306 (150-450) k/uL Neutrophils % 78 % Lymphocytes % 16 % Monocytes % 3 % Eosinophils % 1 % Basophils % 0 % Neutrophils # 7.3 (1.3-7.7) k/uL Lymphocytes # 1.5 (1.0-4.8) k/uL Monocytes # 0.3 (0-1.0) k/uL Eosinophils # 0.1 (0-0.7) k/uL Basophils # 0.0 (0-0.2) k/uL PT 10.3 (9.0-12.0) sec INR 1.0 (<1.2) APTT 26.3 (22.0-30.0) sec Sodium 138 (137-145) mmol/L Potassium 4.1 (3.5-5.1) mmol/L Chloride 107 (98-107) mmol/L Carbon Dioxide 22 (22-30) mmol/L Anion Gap 9 mmol/L BUN 16 (9-20) mg/dL Creatinine 0.78 (0.66-1.25) mg/dL Est GFR (CKD-EPI)AfAm >90 (>60 ml/min/1.73 sqM) Est GFR (CKD-EPI)NonAf >90 (>60 ml/min/1.73 sqM) Glucose 117 H (74-99) mg/dL Plasma Lactic Acid Gray (0.7-2.0) mmol/L Calcium 9.3 (8.4-10.2) mg/dL Total Bilirubin 1.0 (0.2-1.3) mg/dL AST 20 (17-59) U/L ALT 13 (4-49) U/L Alkaline Phosphatase 55 (38-126) U/L Ammonia (<30) umol/L Total Protein 7.3 (6.3-8.2) g/dL Albumin 4.5 (3.5-5.0) g/dL Lipase 1837 H (23-300) U/L Stool Occult Blood (Negative) Blood Type Blood Type Confirm Blood Type Recheck Bld Type Recheck Status Antibody Screen Spec Expiration Date 10/08/19 10/08/19 10/08/19 Range/Units 08:55 08:55 08:55 WBC (3.8-10.6) k/uL RBC (4.30-5.90) m/uL Hgb (13.0-17.5) gm/dL Hct (39.0-53.0) % MCV (80.0-100.0) fL MCH (25.0-35.0) pg MCHC (31.0-37.0) g/dL RDW (11.5-15.5) % Plt Count (150-450) k/uL Neutrophils % % Lymphocytes % % Monocytes % % Eosinophils % % Basophils % % Neutrophils # (1.3-7.7) k/uL Lymphocytes # (1.0-4.8) k/uL Monocytes # (0-1.0) k/uL Eosinophils # (0-0.7) k/uL Basophils # (0-0.2) k/uL PT (9.0-12.0) sec INR (<1.2) APTT (22.0-30.0) sec Sodium (137-145) mmol/L Potassium (3.5-5.1) mmol/L Chloride (98-107) mmol/L Carbon Dioxide (22-30) mmol/L Anion Gap mmol/L BUN (9-20) mg/dL Creatinine (0.66-1.25) mg/dL Est GFR (CKD-EPI)AfAm (>60 ml/min/1.73 sqM) Est GFR (CKD-EPI)NonAf (>60 ml/min/1.73 sqM) Glucose (74-99) mg/dL Plasma Lactic Acid Gray 1.0 (0.7-2.0) mmol/L Calcium (8.4-10.2) mg/dL Total Bilirubin (0.2-1.3) mg/dL AST (17-59) U/L ALT (4-49) U/L Alkaline Phosphatase (38-126) U/L Ammonia <9 (<30) umol/L Total Protein (6.3-8.2) g/dL Albumin (3.5-5.0) g/dL Lipase (23-300) U/L Stool Occult Blood Negative (Negative) Blood Type O Positive Blood Type Confirm Blood Type Recheck No Previous Record Bld Type Recheck Status CABO Indicated Antibody Screen NEGATIVE Spec Expiration Date 10/11/2019 - 235410/08/19 Range/Units 08:57 WBC (3.8-10.6) k/uL RBC (4.30-5.90) m/uL Hgb (13.0-17.5) gm/dL Hct (39.0-53.0) % MCV (80.0-100.0) fL MCH (25.0-35.0) pg MCHC (31.0-37.0) g/dL RDW (11.5-15.5) % Plt Count (150-450) k/uL Neutrophils % % Lymphocytes % % Monocytes % % Eosinophils % % Basophils % % Neutrophils # (1.3-7.7) k/uL Lymphocytes # (1.0-4.8) k/uL Monocytes # (0-1.0) k/uL Eosinophils # (0-0.7) k/uL Basophils # (0-0.2) k/uL PT (9.0-12.0) sec INR (<1.2) APTT (22.0-30.0) sec Sodium (137-145) mmol/L Potassium (3.5-5.1) mmol/L Chloride (98-107) mmol/L Carbon Dioxide (22-30) mmol/L Anion Gap mmol/L BUN (9-20) mg/dL Creatinine (0.66-1.25) mg/dL Est GFR (CKD-EPI)AfAm (>60 ml/min/1.73 sqM) Est GFR (CKD-EPI)NonAf (>60 ml/min/1.73 sqM) Glucose (74-99) mg/dL Plasma Lactic Acid Gray (0.7-2.0) mmol/L Calcium (8.4-10.2) mg/dL Total Bilirubin (0.2-1.3) mg/dL AST (17-59) U/L ALT (4-49) U/L Alkaline Phosphatase (38-126) U/L Ammonia (<30) umol/L Total Protein (6.3-8.2) g/dL Albumin (3.5-5.0) g/dL Lipase (23-300) U/L Stool Occult Blood (Negative) Blood Type Blood Type Confirm O Positive Blood Type Recheck Bld Type Recheck Status Antibody Screen Spec Expiration Date 10/08/19 09:07 EKG shows sinus rhythm with premature atrial complexes. Incomplete right bundle-branch block. 4 EKG. Ventricular rate of 74 bpm. ND interval is 132 ms. QRS duration is 110 ms. QT QTc is 364/44 ms. Disposition Clinical Impression: Pancreatitis, Alcohol use Disposition: ADMITTED IP TO THIS HOSP Condition: Stable Is patient prescribed a controlled substance at d/c from ED?: No Referrals: Samuel Cerda III, MD [Primary Care Provider] - 1-2 days Time of Disposition: 09:46
[2019-10-08 09:08] LABS: Basophils % (A) 0 %; Eosinophils # (A) 0.1 k/uL (0-0.7); Eosinophils % (A) 1 %; HCT 44.1 % (39.0-53.0); HGB 15.1 gm/dL (13.0-17.5); Lymphocytes # (A) 1.5 k/uL (1.0-4.8); Lymphocytes % (A) 16 %; MCHC 34.1 g/dL (31.0-37.0); MCV 93.9 fL (80.0-100.0); Mean Platelet Volume 8.4; Monocytes # (A) 0.3 k/uL (0-1.0); Monocytes % (A) 3 %; Neutrophils # (A) 7.3 k/uL (1.3-7.7); Neutrophils % (A) 78 %; Platelet Count 306 k/uL (150-450); RDW 11.5 % (11.5-15.5); WBC 9.4 k/uL (3.8-10.6)
[2019-10-08 09:16] LABS: ALT 13 U/L (4-49); AST 20 U/L (17-59); African American GFR (CKD) >90 (>60 ml/min/1.73 sqM); Albumin 4.5 g/dL (3.5-5.0); Alkaline Phosphatase 55 U/L (38-126); Anion Gap 9 mmol/L; Blood Urea Nitrogen 16 mg/dL (9-20); Calcium 9.3 mg/dL (8.4-10.2); Carbon Dioxide 22 mmol/L (22-30); Chloride 107 mmol/L (98-107); Glucose 117 mg/dL (74-99); Non-African American GFR(CKD) >90 (>60 ml/min/1.73 sqM); Potassium 4.1 mmol/L (3.5-5.1); Sodium 138 mmol/L (137-145); Total Protein 7.3 g/dL (6.3-8.2)
[2019-10-08 09:22] LABS: Partial Thromboplastin Time 26.3 sec (22.0-30.0); Prothrombin Time 10.3 sec (9.0-12.0)
[2019-10-08] MEDS ORDERED: ACETAMINOPHEN TAB 325 MG TAB PO PRN (09:46)
[2019-10-08] MEDS ORDERED: NALOXONE 0.4 MG/ML 1 ML VIAL IV PRN (09:46)
[2019-10-08] MEDS ORDERED: HYDROmorphone 1 MG/ML 1 ML SYRINGE IVP PRN (09:46)
[2019-10-08] MEDS ORDERED: IBUPROFEN 400 MG TAB PO PRN (09:46)
[2019-10-08] MEDS ORDERED: HYDROmorphone 0.5 MG/0.5 ML SYRINGE IVP PRN (09:46)
[2019-10-08] MEDS ORDERED: hydrOXYzine HCL 25 MG TAB PO PRN (09:47)
[2019-10-08] MEDS: SODIUM CHLORIDE 0.9% 1,000 ML IV SCH ×2 (09:57→19:44)
[2019-10-08] MEDS ORDERED: IOPAMIDOL CONTRAST (ORAL USE) VIAL PO PRN (11:18)
[2019-10-08] MEDS ORDERED: HYDROcodone/APAP 7.5-325MG 1 EACH TAB PO PRN (13:23)
--- NOTE | 2019-10-08 13:29 | P.HPIM ---
History of Present Illness 44-year-old male came to was department with multiple J complains including blood in the stools has been going on for 2 weeks although his hemoglobin is stable and also company of coffee-ground emesis, multiple episodes of diarrhea e very day for 2 weeks although patient doesn't appear to be dehydrated. Patient is complaining of severe bilateral lower abdominal pain. Patient denied any epigastric abdominal pain. Patient pain and a sharp in nature. The only abnormality that was found in the the lab testing is elevated lipase patient denied any alcohol abuse. Review of Systems REVIEW OF SYSTEMS: CONSTITUTIONAL: No fever, no malaise, no fatigue. HEENT: No recent visual problems or hearing problems. Denied any sore throat. CARDIOVASCULAR: No chest pain, orthopnea, PND, no palpitations, no syncope. PULMONARY: No shortness of breath, no cough, no hemoptysis. GASTROINTESTINAL: As mentioned in HPI NEUROLOGICAL: No headaches, no weakness, no numbness. HEMATOLOGICAL: Denies any bleeding or petechiae. GENITOURINARY: Denies any burning micturition, frequency, or urgency. MUSCULOSKELETAL/RHEUMATOLOGICAL: Denies any joint pain, swelling, or any muscle pain. ENDOCRINE: Denies any polyuria or polydipsia. The rest of the 14-point review of systems is negative. Past Medical History Past Medical History: Asthma Additional Past Medical History / Comment(s): Athletic Asthma as a child. Itching-pt. supposed to have appt. at [facility] to investigate. Smoker- occasionaly. Social Drinker History of Any Multi-Drug Resistant Organisms: None Reported Past Surgical History: No Surgical Hx Reported Additional Past Surgical History / Comment(s): Hemroid removal-11/19 Past Anesthesia/Blood Transfusion Reactions: No Reported Reaction Past Psychological History: Bipolar, Depression Smoking Status: Current some day smoker Past Alcohol Use History: Occasional Past Drug Use History: Marijuana - Past Family History Father Family Medical History: Cancer, Hypertension Mother Family Medical History: Cancer, Diabetes Mellitus, Hypertension, Thyroid Disorder Additional Family Medical History / Comment(s): Vertigo Medications and Allergies Home Medications Medication Instructions Recorded Confirmed Type Multivitamin,Therapeutic [Thera] 1 tab PO DAILY 09/14/18 10/08/19 History Dupilumab [Dupixent] 300 mg SQ Q14D 10/08/19 10/08/19 History Allergies Allergy/AdvReac Type Severity Reaction Status Date / Time No Known Allergies Allergy Verified 10/08/19 11:11 Physical Exam Vitals: Vital Signs Temp Pulse Pulse Resp BP BP Pulse Ox 10/08/19 13:14 97.7 F 73 17 133/84 98 10/08/19 11:01 65 18 123/85 96 10/08/19 08:32 98.4 F 84 18 135/84 99 Intake and Output 10/07/19 10/08/19 10/08/19 22:59 06:59 14:59 Other: Weight 74.843 kg PHYSICAL EXAMINATION: GENERAL: The patient is alert and oriented x3, not in any acute distress. Well developed, well nourished. HEENT: Pupils are round and equally reacting to light. EOMI. No scleral icterus. No conjunctival pallor. Normocephalic, atraumatic. No pharyngeal erythema. No thyromegaly. CARDIOVASCULAR: S1 and S2 present. No murmurs, rubs, or gallops. PULMONARY: Chest is clear to auscultation, no wheezing or crackles. ABDOMEN: Soft, nontender, nondistended, normoactive bowel sounds. No palpable organomegaly. MUSCULOSKELETAL: No joint swelling or deformity. EXTREMITIES: No cyanosis, clubbing, or pedal edema. NEUROLOGICAL: Gross neurological examination did not reveal any focal deficits. SKIN: No rashes. Results CBC & Chem 7: 10/08/19 08:55 10/08/19 08:55 Labs: Abnormal Lab Results - Last 24 Hours (Table) 10/08/19 Range/Units 08:55 Glucose 117 H (74-99) mg/dL Lipase 1837 H (23-300) U/L Assessment and Plan Plan: -Abdominal pain or nausea vomiting hematemesis and dark stools: Etiology is not clear none of these symptoms are supported by his labs patient is not dehydrated patient's hemoglobin is stable and at 15. Clinically patient doesn't have pancreatitis patient's lipase elevation and I believe is nonspecific. I'll obtain a computed tomography scan of the abdomen and pelvis. The other diff erential being narcotic seeking behavior or malingering for narcotics as patient was started on full liquid diet already patient will be started on Ancram patient was asked to collect a stool sample for testing as well as to assess the amount of the stool for IV fluids patient is presently in 100 mL of normal saline. She will be monitored overnight -Complaints of for upper GI bleed patient will be continued on Protonix ibuprofen will be discontinued -Nicotine abuse: Counseling was provided -Depression DVT prophylaxis early ambulation
--- NOTE | 2019-10-08 13:44 | CT ---
EXAMINATION TYPE: CT abdomen pelvis w con DATE OF EXAM: 10/08/2019 COMPARISON: None HISTORY: vomiting, diarrhea CT DLP: 560.8 mGycm CONTRAST: CT scan of the abdomen and pelvis is performed with Oral Contrast and with IV Contrast, patient injec andrea with 100 mL of Isovue 300. FINDINGS: LUNG BASES-: No visible nodule. No infiltrate. LIVER/GB: No calcified gallstones. No space occupying hepatic lesion. Biliary tree is of normal ca liber. PANCREAS: No inflammation. No distinct mass. SPLEEN: No splenic enlargement. No lesion seen. ADRENALS: No nodule. No thickening. KIDNEYS/BLADDER: 3 mm nonobstructing calculus mid pole right kidney. No additional line nephrolithias is. No hydronephrosis or renal mass. BOWEL: Normal appendix. Normal bowel caliber. No inflammation. GENITAL ORGANS: No gross abnormality. LYMPH NODES: No greater than 1cm abdominal or pelvic lymph nodes are appreciated. AORTA: No significant abnormality. OSSEOUS STRUCTURES: No significant abnormality is seen. OTHER: No significant additional abnormality is seen. IMPRESSION: 1. 3 mm nonobstructing calculus mid pole right kidney. No additional line nephrolithiasis. No hydrone phrosis
[2019-10-08] MEDS ORDERED: ONDANSETRON 4 MG/2 ML VIAL IVP PRN (18:08)
[2019-10-08 22:38] VITALS: RESP 18
[2019-10-09 05:20] VITALS: BP 137/83; PULSE 67; TEMP 98
[2019-10-09] MEDS: SODIUM CHLORIDE 0.9% 1,000 ML IV SCH (05:24)
[2019-10-09 06:29] LABS: African American GFR (CKD) >90 (>60 ml/min/1.73 sqM); Anion Gap 2 mmol/L; Blood Urea Nitrogen 12 mg/dL (9-20); Calcium 8.9 mg/dL (8.4-10.2); Carbon Dioxide 28 mmol/L (22-30); Chloride 107 mmol/L (98-107); Glucose 102 mg/dL (74-99); Non-African American GFR(CKD) >90 (>60 ml/min/1.73 sqM); Sodium 137 mmol/L (137-145)
[2019-10-09] MEDS ORDERED: MULTIVITAMINS, THERA 1 EACH TAB PO SCH (09:00)
[2019-10-09] MEDS ORDERED: PANTOPRAZOLE 40 MG/10 ML VIAL IV SCH (09:00)
[2019-10-09] MEDS ORDERED: FLUoxetine HCL 20 MG CAP PO SCH (09:00)
--- NOTE | 2019-10-09 13:40 | P.DS ---
Providers Date of admission: 10/08/19 09:35 Expected date of discharge: 10/09/19 Attending physician: Britt Rogers Primary care physician: Samuel Cerda [facility] Course: Final diagnosis -Abdominal pain or nausea vomiting hematemesis and dark stools, resolved -Elevated lipase, improving, not clinically suspicious of pancreatitis although cannot completely rule out -Complaints of upper GI bleed -Nicotine abuse -Depression -DVT prophylaxis Discharge disposition Patient is being discharged in a stable condition with guarded prognosis to home. Patient will follow-up with Dr. Cerda along with urology in the outpatient setting. Total time taken is 35 minutes. History of present illness This is a 44-year-old male who was recently admitted with multiple episodes of diarrhea, some blood noted in the stool, and also some coffee-ground emesis and was being closely monitored. Patient underwent CT of the abdomen showing a 3 mm nonobstructing calculus in the midpole of the right kidney with no additional nephrolithiasis or hydronephrosis noted and no other significant abnormalities noted. Patient states his abdominal pain has subsided and is tolerating diet. Patient denies any further episodes of diarrhea or any blood noted in the stool. Patient instructed to follow-up with urology in the outpatient setting along with primary care provider. Subsequently patient's lipase was elevated at 1837 and repeat is now 846 and a prescription was provided for repeat lipase on Saturday. Patient is otherwise not exhibiting any other signs of pancreatitis although cannot be completely ruled out. Currently no reports of chest pain, shortness of breath, or palpitations. Patient denies any dizziness or lightheadedness and is tolerating adjustments in medications thus far. Patient is afebrile . No reports of nausea or vomiting and patient is tolerating diet. On exam vital signs are stable. Temp is 98F, pulse is 67, respirations are 18, blood pressure is 137/83, oxygen saturation is 97% on room air. Cardio S1, S2 are present. Respiratory system shows clear to auscultation. Abdomen is soft, thin, and non-tender. Nervous system shows no focal deficits. Please refer to medication reconciliation sheet for a list of medications. Patient Condition at Discharge: Stable Plan - Discharge Summary Discharge Rx Participant: No New Discharge Prescriptions: New Pantoprazole Sodium [Protonix] 40 mg PO DAILY #30 tablet. Continue Multivitamin,Therapeutic [Thera] 1 tab PO DAILY Dupilumab [Dupixent] 300 mg SQ Q14D Discharge Medication List Multivitamin,Therapeutic [Thera] 1 tab PO DAILY 09/14/18 [History] Dupilumab [Dupixent] 300 mg SQ Q14D 10/08/19 [History] Pantoprazole Sodium [Protonix] 40 mg PO DAILY #30 tablet. 10/09/19 [Rx] Follow up Appointment(s)/Referral(s): Joey Johnson MD [STAFF PHYSICIAN] - 2 Weeks (The office will give you a call with an apointment time and date.) Samuel Cerda III, MD [Primary Care Provider] - 1-2 days (The office did not answer please call and schedule this appointment.) Ambulatory/Diagnostic Orders: Amylase [LAB.AMB] Time Frame: 3 Days, Location: None Selected Patient Instructions/Handouts: Pancreatitis (GEN), Kidney Stones (GEN) Activity/Diet/Wound Care/Special Instructions: Activity Limited until follow-up Continue current diet and advance as tolerated Avoid any alcohol use Follow-up with primary care provider upon discharge Follow-up with urology in 2 weeks Repeat labs in 3 days to monitor amylase Discharge Disposition: HOME SELF-CARE
== END 2019-10-09 12:33 | disposition home or self-care (01) | DRG 439 ==
LOC: EC 08:31 → 5NMEDONC 09:35
PROVIDERS: ADMIT Internal Medicine; ATTEND Internal Medicine
DX: K85.90 Acute pancreatitis without necrosis or infection, unspecified (principal); K92.0 Hematemesis; K92.1 Melena; N20.0 Calculus of kidney; Z11.59 Encounter for screening for other viral diseases; I45.10 Unspecified right bundle-branch block; F32.9 Major depressive disorder, single episode, unspecified; F17.200 Nicotine dependence, unspecified, uncomplicated; Z71.6 Tobacco abuse counseling; Z79.899 Other long term (current) drug therapy; Z87.09 Personal history of other diseases of the respiratory system; Z72.89 Other problems related to lifestyle; Z82.49 Family history of ischemic heart disease and other diseases of the circulatory system; Z83.3 Family history of diabetes mellitus; Z83.49 Family history of other endocrine, nutritional and metabolic diseases; Z80.9 Family history of malignant neoplasm, unspecified
CPT/HCPCS: 36415; 74177; 80048; 80053; 82140; 82272; 83605; 83690; 84484; 85025; 85610; 85730; 86850; 86900; 86901; 87635; 93005; 96361; 96374; 96375; 99285

== ENCOUNTER → 2019-11-20 | Outpatient (CLI) | payer MEDICAID ==
--- NOTE | 2019-11-20 07:45 | US ---
EXAMINATION TYPE: US abdomen complete DATE OF EXAM: 11/20/2019 COMPARISON: CT October 2019 CLINICAL HISTORY: R10.11 RUQ PAIN,R11.0 NAUSEA. Pt states ABD pain EXAM MEASUREMENTS: Liver Length: 15.7 cm Gallbladder Wall: 0.2 cm CBD: 0.4 cm Spleen: 9.7 cm Right Kidney: 10.9 x 4.1 x 5.3 cm Left Kidney: 11.7 x 4.9 x 4.9 cm Pancreas: wnl Liver: Hypoechoic lesion right lobe superior to right kidney= 1.7 x 1.8 x 1.9 cm, appears non vascul ar Gallbladder: wnl Evidence for sonographic Mcclain's sign: No CBD: wnl Spleen: wnl Right Kidney: Calculus lower pole= 0.5 cm Left Kidney: wnl Upper IVC: wnl Abd Aorta: wnl IMPRESSION: 1. Ill-defined hypoechoic lesion within the liver. Additional workup with contrast MRI is recommended . 2. Nonobstructing right renal calcification.
== END | disposition home or self-care (01) ==
LOC: RADUSWWP 07:01
PROVIDERS: ATTEND Family Medicine
DX: K76.9 Liver disease, unspecified (principal); N28.89 Other specified disorders of kidney and ureter
CPT/HCPCS: 76700

== ENCOUNTER → 2019-12-16 | Outpatient (CLI) | payer MEDICAID ==
--- NOTE | 2019-12-17 05:40 | MR ---
EXAMINATION TYPE: MR abdomen wo/w con DATE OF EXAM: 12/16/2019 COMPARISON: HISTORY: Abnormal ultrasound, right upper quadrant pain and nausea CONTRAST: Standard multiplanar, multisequence MRI departmental protocol utilizing 7 mL intravenous Gadavist rob olinium contrast. Liver has normal size and contour. There is a 2.5 cm rounded area of high signal on the T2 images in the posterior right lobe of the liver. This corresponds to the hypoechoic area on the ultrasound of . There is progressive enhancement of the lesion on the delayed contrast images. There are so me serpiginous vessels at the periphery. This is consistent with hemangioma. Spleen appears normal. There is no evidence of pancreatic mass. Stomach appears normal. There is no e vidence of pleural effusion. There is no adrenal mass. Kidneys show satisfactory contrast opacificati on. There is no hydronephrosis. There is no evidence of retroperitoneal adenopathy. There is no sign of ascites. Gallbladder has normal size and contour. IMPRESSION: Progressively enhancing mass in the right lobe of the liver has features diagnostic of hemangioma. Th e lesion measures larger than recent ultrasound exam which shows size of 1.9 cm and now on MR scan is 2.5 cm.
== END | disposition home or self-care (01) ==
LOC: RADMRIMAIN 14:31
PROVIDERS: ATTEND Family Medicine
DX: R16.0 Hepatomegaly, not elsewhere classified (principal)
CPT/HCPCS: 74183; A9585

== ENCOUNTER → 2019-12-23 | Outpatient (CLI) | payer MEDICAID ==
--- NOTE | 2019-12-24 09:31 | NM ---
EXAMINATION TYPE: NM hepatobiliary w CCK DATE OF EXAM: 12/23/2019 COMPARISON: Abdominal ultrasound 11/20/2019 HISTORY: Abdominal pain TECHNIQUE: After the intravenous administration of 4.89 mCi Tc 99m Mebrofenin hepatobiliary scintigra phy is performed. Immediate images post injection. FINDINGS: There is satisfactory initial accumulation of tracer by the liver. The gallbladder is visualized wit hin 10 minutes. The small bowel activity is noted within 45 minutes. At one hour CCK was administer ed, patient was injected with 0.7 mcg of Kinevac, and gallbladder ejection fraction is calculated at 77 %, in the normal range. Therefore there is no scintigraphic evidence of cystic or common bile libby t obstruction to suggest acute cholecystitis or gallbladder dyskinesia. IMPRESSION: Exam is within normal limits.
== END | disposition home or self-care (01) ==
LOC: RADNMMAIN 12:56
PROVIDERS: ATTEND Internal Medicine Gastroenterology
DX: R10.9 Unspecified abdominal pain (principal)
CPT/HCPCS: 78227; A9537; J2805

== ENCOUNTER → 2020-01-05 | Day surgery (SDC) | payer MEDICAID ==
[2020-01-04 09:46] VITALS: BMI 22.3
[~2020-01-05] MED LIST changes: +LACTATED RINGERS 1,000 ML IV SCH; +LIDOCAINE 1% (10MG/ML) FOR IV START INTRADERMA ONE; -LIDOCAINE 1% 20 ML VIAL (10MG/ML) FOR IV START INTRADERMA ONE; +MIDAZOLAM 2 MG/2 ML VIAL ONE; +ONDANSETRON 4 MG/2 ML VIAL ONE; +fentaNYL (PF) 50 MCG/ML 2 ML AMP ONE
[2020-01-05 10:57] VITALS: RESP 16; TEMP 98.7
--- NOTE | 2020-01-05 12:26 | P.PCN ---
Date of Procedure: 01/05/20 Description of Procedure: Brief history: Patient is a pleasant 44-year-old male presenting for outpatient EGD and colonoscopy for evaluation of abdominal pain and diarrhea. Patient symptoms somewhat improved on a GERD/antireflux diet. Procedure performed: Esophagogastroduodenoscopy with biopsy Colonoscopy with biopsy Estimated blood loss: Minimal. Preoperative diagnosis: Abdominal pain, diarrhea Anesthesia: [facility] Procedure: After informed consent was obtained from the patient was brought into the endoscopy unit and IV sedation was administered by anesthesia under continuous monitoring. Initially upper endoscopy was done. The Olympus GF 190 video endoscope was inserted into the mouth and esophagus intubated without any difficulty and was gradually advanced into the stomach and duodenum and carefully examined. The bulb and second part of the duodenum appeared normal, with biopsies taken. The scope was then withdrawn into the stomach adequately insufflated with air and upon careful examination the antrum and body, cardia and fundus appeared normal, except for some mild scattered erythema in the antrum and body suggestive of mild gastritis with biopsies taken. The scope was then withdrawn into the esophagus. The GE junction was located at 40 cm to the incisors, and appeared somewhat irregular with biopsies of GE junction taken. There was a 1 cm hiatal hernia. It appeared regular with no erythema erosions or ulcerations. Rest of the esophagus appeared normal. Patient tolerated the procedure well. At this time the patient continued to remain sedation. Initial digital rectal examination was normal. Olympus CF 190 video colonoscope was then inserted into the rectum and gradually advanced to the cecum without any difficulty. Careful examination was performed as the scope was gradually being withdrawn. The prep was excellent. The cecum, ascending colon, transverse colon, descending colon, sigmoid colon and rectum appeared normal, with random biopsies taken of the right and left colon the setting of diarrhea. The terminal ileum was also intubated and appeared normal biopsies taken. Retroflexion was performed in the rectum and no lesions were noted, and low-grade internal hemorrhoids were seen. Patient tolerated the procedure well. Impression: 1. Mild gastritis antrum and body, biopsied. Biopsies of the GE junction and duodenum. 2. Normal-appearing colon from rectum to cecum with normal-appearing terminal ileum, and random biopsies were taken of the right colon, left colon and terminal ileum in the setting of altered bowel function/diarrhea. Recommendations: Findings of this examination were discussed with the patient as well as his . Okay to resume diet. Okay to resume medications. Await pathology from biopsies. Follow up in the gastroenterology clinic in the next 1-2 weeks.
[2020-01-05 12:56] VITALS: BP 132/86; PULSE 59
== END ==
LOC: ORWHC2ENDO 10:13
PROVIDERS: ATTEND Internal Medicine
DX: R19.7 Diarrhea, unspecified (principal); R19.4 Change in bowel habit; K64.8 Other hemorrhoids; K29.50 Unspecified chronic gastritis without bleeding; K21.0 Gastro-esophageal reflux disease with esophagitis; K44.9 Diaphragmatic hernia without obstruction or gangrene; F17.210 Nicotine dependence, cigarettes, uncomplicated; Z91.040 Latex allergy status; Z79.899 Other long term (current) drug therapy; Z87.19 Personal history of other diseases of the digestive system; Z98.890 Other specified postprocedural states
CPT/HCPCS: 45380; 43239; 88305; J2250; J2405; J3010; J2704

== ENCOUNTER 2021-08-18 10:11 | Emergency (ER) | payer MEDICAID ==
[2021-08-18 10:34] VITALS: RESP 18
[2021-08-18] MEDS ORDERED: KETOROLAC 15 MG/ML 1 ML VIAL IVP STA (12:06)
[2021-08-18] MEDS ORDERED: ONDANSETRON 4 MG/2 ML VIAL IVP STA (12:06)
[2021-08-18] MEDS ORDERED: SODIUM CHLORIDE 0.9% 1,000 ML IV STA (12:06)
--- NOTE | 2021-08-18 12:10 | ED ---
General Adult HPI - General Source: patient, family, RN notes reviewed, old records reviewed Mode of arrival: wheelchair Limitations: no limitations - History of Present Illness -: days(s) Location: right (flank) Radiation: distal (right groin) Severity scale (1-10): 10 Quality: sharp, constant Consistency: constant Improves with: none Worsens with: movement Associated Symptoms: nausea/vomiting <Gilberto Salinas - Last Filed: 08/18/21 15:40> <Eric Joyce - Last Filed: 08/18/21 16:33> - General Chief complaint: Abdominal Pain Stated complaint: kidney stone Time Seen by Provider: 08/18/21 12:00 - History of Present Illness Initial comments: 46-year-old male alert and oriented 4 presents with family member complaining of right flank pain.. Patient was seen yesterday and diagnosed with a kidney stone. He was told to go home and see if he can pass it on his own. He has had increasing pain to his back radiating down into his right groin. He still is able to urinate. States the pain is constant 10 out of 10. Denies any fevers. He has nausea and vomiting no diarrhea. (Gilberto Salinas) - Related Data Home Medications Medication Instructions Recorded Confirmed Multivitamin,Therapeutic [Thera] 1 tab PO DAILY 09/14/18 08/18/21 Dupilumab [Dupixent Syringe] 300 mg SQ Q14D 10/08/19 08/18/21 Previous Rx's Medication Instructions Recorded Pantoprazole Sodium [Protonix] 40 mg PO DAILY #30 tablet. 10/09/19 Ibuprofen [Motrin] 600 mg PO Q8HR PRN #24 tab 08/18/21 Allergies Allergy/AdvReac Type Severity Reaction Status Date / Time No Known Allergies Allergy Verified 08/18/21 12:27 Review of Systems ROS Other: All systems not noted in ROS Statement are negative. <Gilberto Salinas - Last Filed: 08/18/21 15:40> ROS Other: All systems not noted in ROS Statement are negative. <Eric Joyce - Last Filed: 08/18/21 16:33> ROS Statement: Those systems with pertinent positive or pertinent negative responses have been documented in the HPI. Past Medical History Past Medical History: Asthma Additional Past Medical History / Comment(s): Athletic Asthma as child,kidney stones,. History of Any Multi-Drug Resistant Organisms: None Reported Past Surgical History: Hernia Repair Additional Past Surgical History / Comment(s): HEMORROIDECTOMY Past Anesthesia/Blood Transfusion Reactions: Motion Sickness Past Psychological History: Bipolar, Depression Smoking Status: Current every day smoker Past Alcohol Use History: Occasional Past Drug Use History: Marijuana - Past Family History Father Family Medical History: Hypertension Mother Family Medical History: Diabetes Mellitus, Hypertension, Thyroid Disorder Additional Family Medical History / Comment(s): Vertigo grandmother had cancer <Gilberto Salinas - Last Filed: 08/18/21 15:40> General Exam Limitations: no limitations General appearance: alert, in no apparent distress Head exam: Present: atraumatic Eye exam: Present: normal appearance. Absent: scleral icterus, conjunctival injection ENT exam: Present: normal exam, normal oropharynx, mucous membranes moist Neck exam: Present: normal inspection Respiratory exam: Present: normal lung sounds bilaterally. Absent: respiratory distress, accessory muscle use, decreased breath sounds Cardiovascular Exam: Present: regular rate, normal heart sounds GI/Abdominal exam: Present: soft, tenderness (right lower). Absent: distended, rebound, rigid Back exam: Present: normal inspection, CVA tenderness (R). Absent: tenderness, CVA tenderness (L), rash noted Neurological exam: Present: alert, oriented X3 Psychiatric exam: Present: normal affect, normal mood Skin exam: Present: warm, dry, normal color. Absent: rash, cyanosis, diaphoretic <Gilbetro Salinas - Last Filed: 08/18/21 15:40> Course Vital Signs 08/18/21 08/18/21 08/18/21 10:33 12:06 14:00 Temperature 97.8 F 98.6 F Pulse Rate 59 L 62 60 Respiratory 18 18 18 Rate Blood Pressure 145/92 134/83 O2 Sat by Pulse 98 99 98 Oximetry 08/18/21 16:23 Temperature Pulse Rate 61 Respiratory 18 Rate Blood Pressure 136/81 O2 Sat by Pulse 97 Oximetry Medical Decision Making - Lab Data Result diagrams: 08/18/21 14:34 08/18/21 12:36 <Gilberto Salinas - Last Filed: 08/18/21 15:40> - Lab Data Result diagrams: 08/18/21 14:34 08/18/21 14:34 <Eric Joyce - Last Filed: 08/18/21 16:33> - Medical Decision Making Patient presents as a return visit from yesterday for right flank pain. Diagnosed with kidney stone yesterday and is having increasing pain radiating to his right groin. Positive nausea, no vomiting no fevers. Denies hematuria or dysuria. CT was performed yesterday shows a right-sided hydronephrosis and hydroureter. Distal right ureter was not well visualized. KUB x-ray today shows no unusual calcifications. I did speak with the radiologist who reread the CT from yesterday and notes there is a 4 mm stone in the distal ureter with evidence of hydronephrosis. UA today shows no evidence of infection or hematuria. Patient was given Toradol IV fluids and multiple doses of antiemetics. Continues to have pain, additional pain medications were given. Case signed out to Dr. Joyce to assess labs and pain control. (Gilberto Salinas) Saran Ramírez does have a 4 mm obstructing stone. On reevaluation he is very comfortable. He states his pain is significantly improved. He has Tylenol 3 at home and will be prescribed prescription strength Motrin. Additionally is given a urine strainer and will follow-up with urology. (Eric Joyce) - Lab Data Lab Results 08/18/21 08/18/21 08/18/21 Range/Units 12:36 12:36 12:36 WBC 11.2 H (3.8-10.6) k/uL RBC 4.99 (4.30-5.90) m/uL Hgb 15.7 (13.0-17.5) gm/dL Hct 46.8 (39.0-53.0) % MCV 93.7 (80.0-100.0) fL MCH 31.4 (25.0-35.0) pg MCHC 33.5 (31.0-37.0) g/dL RDW 13.2 (11.5-15.5) % Plt Count 311 (150-450) k/uL MPV 7.2 Neutrophils % 84 % Lymphocytes % 10 % Monocytes % 4 % Eosinophils % 0 % Basophils % 0 % Neutrophils # 9.4 H (1.3-7.7) k/uL Lymphocytes # 1.1 (1.0-4.8) k/uL Monocytes # 0.5 (0-1.0) k/uL Eosinophils # 0.1 (0-0.7) k/uL Basophils # 0.0 (0-0.2) k/uL Sodium 139 (137-145) mmol/L Potassium 4.0 (3.5-5.1) mmol/L Chloride 104 (98-107) mmol/L Carbon Dioxide 26 (22-30) mmol/L Anion Gap 9 mmol/L BUN 24 H (9-20) mg/dL Creatinine 1.21 (0.66-1.25) mg/dL Est GFR (CKD-EPI)AfAm 83 (>60 ml/min/1.73 sqM) Est GFR (CKD-EPI)NonAf 72 (>60 ml/min/1.73 sqM) Glucose 113 H (74-99) mg/dL Calcium 9.7 (8.4-10.2) mg/dL Total Bilirubin 0.5 (0.2-1.3) mg/dL AST 31 (17-59) U/L ALT 39 (4-49) U/L Alkaline Phosphatase 69 (38-126) U/L Total Protein 7.7 (6.3-8.2) g/dL Albumin 4.7 (3.5-5.0) g/dL Urine Color Light Yellow Urine Appearance Clear (Clear) Urine pH 5.5 (5.0-8.0) Ur Specific Martin 1.012 (1.001-1.035) Urine Protein Negative (Negative) Urine Glucose (UA) Negative (Negative) Urine Ketones 1+ H (Negative) Urine Blood Negative (Negative) Urine Nitrite Negative (Negative) Urine Bilirubin Negative (Negative) Urine Urobilinogen <2.0 (<2.0) mg/dL Ur Leukocyte Esterase Negative (Negative) 08/18/21 08/18/21 Range/Units 14:34 14:34 WBC 6.3 (3.8-10.6) k/uL RBC 4.12 L (4.30-5.90) m/uL Hgb 13.1 (13.0-17.5) gm/dL Hct 39.4 (39.0-53.0) % MCV 95.5 (80.0-100.0) fL MCH 31.8 (25.0-35.0) pg MCHC 33.2 (31.0-37.0) g/dL RDW 11.3 L (11.5-15.5) % Plt Count 161 (150-450) k/uL MPV 9.0 Neutrophils % 77 % Lymphocytes % 12 % Monocytes % 10 % Eosinophils % 0 % Basophils % 0 % Neutrophils # 4.9 (1.3-7.7) k/uL Lymphocytes # 0.7 L (1.0-4.8) k/uL Monocytes # 0.6 (0-1.0) k/uL Eosinophils # 0.0 (0-0.7) k/uL Basophils # 0.0 (0-0.2) k/uL Sodium 135 L (137-145) mmol/L Potassium 4.3 (3.5-5.1) mmol/L Chloride 104 (98-107) mmol/L Carbon Dioxide 24 (22-30) mmol/L Anion Gap 7 mmol/L BUN 18 (9-20) mg/dL Creatinine 1.27 H (0.66-1.25) mg/dL Est GFR (CKD-EPI)AfAm 78 (>60 ml/min/1.73 sqM) Est GFR (CKD-EPI)NonAf 68 (>60 ml/min/1.73 sqM) Glucose 101 H (74-99) mg/dL Calcium 8.2 L (8.4-10.2) mg/dL Total Bilirubin 0.6 (0.2-1.3) mg/dL AST 28 (17-59) U/L ALT 12 (4-49) U/L Alkaline Phosphatase 43 (38-126) U/L Total Protein 6.1 L (6.3-8.2) g/dL Albumin 3.8 (3.5-5.0) g/dL Urine Color Urine Appearance (Clear) Urine pH (5.0-8.0) Ur Specific Martin (1.001-1.035) Urine Protein (Negative) Urine Glucose (UA) (Negative) Urine Ketones (Negative) Urine Blood (Negative) Urine Nitrite (Negative) Urine Bilirubin (Negative) Urine Urobilinogen (<2.0) mg/dL Ur Leukocyte Esterase (Negative) Disposition <Gilberto Salinas - Last Filed: 08/18/21 15:40> Is patient prescribed a controlled substance at d/c from ED?: No Time of Disposition: 16:33 <Eric Joyce - Last Filed: 08/18/21 16:33> Clinical Impression: Right ureteral stone Disposition: HOME SELF-CARE Condition: Good Instructions (If sedation given, give patient instructions): Kidney Stones (ED), Renal Colic (ED) Prescriptions: Ibuprofen [Motrin] 600 mg PO Q8HR PRN #24 tab PRN Reason: Pain Referrals: Samuel Cerda III, MD [Primary Care Provider] - 1-2 days Donnie Arshad MD [STAFF PHYSICIAN] - 1-2 days
[2021-08-18 13:11] LABS: Basophils % (A) 0 %; Eosinophils # (A) 0.1 k/uL (0-0.7); Eosinophils % (A) 0 %; HCT 46.8 % (39.0-53.0); HGB 15.7 gm/dL (13.0-17.5); Lymphocytes # (A) 1.1 k/uL (1.0-4.8); Lymphocytes % (A) 10 %; MCH 31.4 pg (25.0-35.0); MCHC 33.5 g/dL (31.0-37.0); MCV 93.7 fL (80.0-100.0); Mean Platelet Volume 7.2; Monocytes # (A) 0.5 k/uL (0-1.0); Monocytes % (A) 4 %; Neutrophils # (A) 9.4 k/uL (1.3-7.7); Neutrophils % (A) 84 %; Platelet Count 311 k/uL (150-450); RBC 4.99 m/uL (4.30-5.90); RDW 13.2 % (11.5-15.5); WBC 11.2 k/uL (3.8-10.6)
[2021-08-18 13:32] LABS: Albumin 4.7 g/dL (3.5-5.0); Calcium 9.7 mg/dL (8.4-10.2); Total Bilirubin 0.5 mg/dL (0.2-1.3); Total Protein 7.7 g/dL (6.3-8.2)
--- NOTE | 2021-08-18 13:46 | XR ---
EXAMINATION TYPE: XR KUB DATE OF EXAM: 08/18/2021 COMPARISON: NONE HISTORY: Pain TECHNIQUE: Single supine KUB image of the abdomen is obtained FINDINGS: Small bowel demonstrates no evidence for dilatation or air fluid levels. Gas and fecal material is seen in non-distended colon. No convincing evidence for pneumoperitoneum. No unusual calcifications. The lung bases are clear. The osseous structures are intact. IMPRESSION: 1. Overall nonobstructive bowel gas pattern.
[2021-08-18 14:24] LABS: Appearance,Urine Clear (Clear); Bilirubin,Urine Negative (Negative); Blood,Urine Negative (Negative); Color,Urine Light Yellow; Glucose,Urine (UA) Negative (Negative); Ketones,Urine 1+ (Negative); Leukocyte Esterase,Urine Negative (Negative); Nitrite,Urine Negative (Negative); PH, Urine 5.5 (5.0-8.0); Protein,Urine Negative (Negative); Specific Gravity,Urine 1.012 (1.001-1.035); Urobilinogen,Urine <2.0 mg/dL (<2.0)
[2021-08-18] MEDS ORDERED: METOCLOPRAMIDE 5 MG/ML 2 ML VIAL IVP STA (15:00)
[2021-08-18 15:30] LABS: Basophils % (A) 0 %; Eosinophils % (A) 0 %; HCT 39.4 % (39.0-53.0); HGB 13.1 gm/dL (13.0-17.5); Lymphocytes # (A) 0.7 k/uL (1.0-4.8); Lymphocytes % (A) 12 %; MCH 31.8 pg (25.0-35.0); MCHC 33.2 g/dL (31.0-37.0); MCV 95.5 fL (80.0-100.0); Monocytes # (A) 0.6 k/uL (0-1.0); Monocytes % (A) 10 %; Neutrophils # (A) 4.9 k/uL (1.3-7.7); Neutrophils % (A) 77 %; Platelet Count 161 k/uL (150-450); RBC 4.12 m/uL (4.30-5.90); RDW 11.3 % (11.5-15.5); WBC 6.3 k/uL (3.8-10.6)
[2021-08-18 15:41] LABS: Albumin 3.8 g/dL (3.5-5.0); Calcium 8.2 mg/dL (8.4-10.2); Potassium 4.3 mmol/L (3.5-5.1); Total Bilirubin 0.6 mg/dL (0.2-1.3); Total Protein 6.1 g/dL (6.3-8.2)
[2021-08-18 16:24] VITALS: BP 136/81
[2021-08-18] MEDS: HYDROmorphone 0.5 MG/0.5 ML SYRINGE IVP STA ×2 (16:24→16:27)
[2021-08-18 16:41] VITALS: PULSE 76; TEMP 98.7
== END 2021-08-18 16:41 | disposition home or self-care (01) ==
LOC: EC 10:11
DX: N20.2 Calculus of kidney with calculus of ureter (principal); J45.909 Unspecified asthma, uncomplicated; F31.9 Bipolar disorder, unspecified; F17.200 Nicotine dependence, unspecified, uncomplicated; F12.90 Cannabis use, unspecified, uncomplicated
CPT/HCPCS: 99284; 96374; 96375 ×3; 96361; 36415; 80053; 85025; 81003; 74018; J2765; J2405; J1885; J1170

== ENCOUNTER → 2023-09-10 | Outpatient (CLI) | payer MEDICAID ==
--- NOTE | 2023-09-10 19:48 | US ---
EXAMINATION TYPE: US thyroid st tissue head/neck DATE OF EXAM: 09/10/2023 COMPARISON: NONE CLINICAL INDICATION: Male, 48 years old with history of R94.6 ABNORMAL RESULTS OF THYROID FUNCTION; a bnormal labs GLAND SIZE: Right Lobe: 5.7 x 3.0 x 2.7 cm Overall Parenchyma: heterogeneous Left Lobe: 3.1 x .5 x 1.0 cm Overall Parenchyma: homogeneous Isthmus Thickness: .2 cm NODULES RIGHT: # of nodules measured on right: Multiple largest inferior. 1. 2.3 X 1.8 x 1.9 cm, lower medial, Prior size: No previous. TIRADS Score: 4 TIRADS Category 4: Composition: Solid or almost completely solid (2 points). Echogenicity: Hypoechoic (2 points). Shape: Wider than tall (0 points). Margin: Smooth (0 points). Echogenic foci: None or large comet-tail artifacts (0 points) Recommendation: If >1.5cm: FNA; If >1cm: Follow up at 1,2, 3,5 years LEFT: # of nodules measured on left: 0 ISTHMUS: # of nodules measured in the isthmus: 0 Bilateral neck scanned, no evidence of lymphadenopathy. The stomach pathology IMPRESSION: 1. Heterogenous thyroid gland with increased vascularity correlate for thyroiditis. Findings worse o n the right 2. Right thyroid gland nodule which meets criteria for FNA if not previously performed.
== END | disposition home or self-care (01) ==
LOC: RADUSWWP 15:52
PROVIDERS: ATTEND Family Medicine
DX: R94.6 Abnormal results of thyroid function studies (principal); E04.1 Nontoxic single thyroid nodule
CPT/HCPCS: 76536

== ENCOUNTER → 2023-11-01 | Outpatient (CLI) | payer MEDICAID ==
--- NOTE | 2023-11-01 08:30 | XR ---
EXAMINATION TYPE: XR chest 2V DATE OF EXAM: 11/01/2023 COMPARISON: 828 TECHNIQUE: PA and lateral views submitted. HISTORY: Hepatomegaly FINDINGS: The lungs are clear and there is no pneumothorax, pleural effusion, or focal pneumonia. Heart size normal and no overt failure. Osseous structures intact. IMPRESSION: 1. No acute process.
--- NOTE | 2023-11-03 19:19 | CT ---
EXAMINATION TYPE: CT abdomen pelvis w con CT DLP: 1072 mGycm, Automated exposure control for dose reduction was used. DATE OF EXAM: 11/01/2023 9:41 AM COMPARISON: CT abdomen pelvis most recent from 08/17/2021, MR abdomen 12/16/2019 CLINICAL INDICATION:Male, 48 years old with history of R16.0 HEPATOMEGALY, E03.9 HYPOTHYROIDISM R63.4 ABN; liver spots and abnormal weight loss TECHNIQUE: Standard CT of the abdomen and pelvis following the administration of 100 cc of Isovue 3 00 IV contrast material and oral contrast. Coronal and sagittal reformats were performed. FINDINGS: LOWER CHEST: Unremarkable ABDOMEN LIVER: Enlarged measuring 18.9 cm in CC dimension. There is a hyperattenuating lesion within the segm ent 4A measuring 1.2 cm (series 3, image 8). This appears to blend in on the delayed phase. Additiona l 2.8 cm lesion within segment 7 of the right hepatic lobe with peripheral hyperattenuation and centr al low-attenuation (series 3, image 16). This appears to fill in on delayed phase and somewhat blends in with the surrounding parenchyma. GALLBLADDER AND BILE DUCTS: Unremarkable. PANCREAS: Unremarkable. SPLEEN: Unremarkable. ADRENAL GLANDS: Unremarkable. KIDNEYS AND URETERS: No evidence of hydronephrosis. No right nephrolithiasis. Nonobstructive left 2 m m calculus. The kidneys enhance symmetrically. Contrast is demonstrated within both collecting system s on the delayed phase. PELVIS BLADDER: Unremarkable REPRODUCTIVE: Unremarkable. ABDOMEN & PELVIS STOMACH AND BOWEL: Small hiatal hernia. Mild/moderate stools present throughout the colon. Oral contr ast reaches the distal small bowel. The appendix is within normal limits. No focal bowel wall thicken ing or surrounding inflammatory changes. No evidence of bowel obstruction. PERITONEUM: No evidence of pneumoperitoneum or free fluid. VASCULATURE: No evidence of aortic aneurysm. MUSCULOSKELETAL: No acute osseous abnormalities LYMPH NODES: No gross evidence for lymphadenopathy. SOFT TISSUE/ABDOMINAL WALL: Unremarkable IMPRESSION: 1. Hepatomegaly with relatively stable 2.8 cm lesion within the right hepatic lobe most consistent wi th a benign hemangioma. Additional 1.2 cm lesion within the left hepatic lobe is relatively stable re trospectively and is most consistent with a shunt. No new suspicious hepatic lesions. No lymphadenopa thy. 2. Nonobstructive left renal calculus.
== END | disposition home or self-care (01) ==
LOC: RADCTMAIN 07:38
PROVIDERS: ATTEND Internal Medicine Hematology & Oncology
DX: N20.0 Calculus of kidney (principal); R16.0 Hepatomegaly, not elsewhere classified; E03.9 Hypothyroidism, unspecified; R63.4 Abnormal weight loss
CPT/HCPCS: 71046; 74177; Q9967

== ENCOUNTER 2023-11-12 13:01 | Day surgery (SDC) | payer MEDICAID ==
[2023-11-12 13:29] VITALS: TEMP 98.6
--- NOTE | 2023-11-12 14:23 | US ---
ULTRASOUND GUIDED FNA THYROID BIOPSY: CLINICAL HISTORY: 2.3 cm right thyroid nodule requested for FNA FINDINGS: The procedure was explained to the patient. The risks, complications, benefits and alternatives were discussed and any questions were answered. Informed consent was obtained. Patient was placed supin e on the ultrasound table and prepped and draped in the usual sterile fashion. Utilizing a 25 gauge needle, five passes were made into the requested 2.3 cm right thyroid nodule. Patient was stable throughout the procedure. Pathology is pending. All elements of maximal barrier technique were utilized. IMPRESSION: 1. Successful ultrasound guided FNA thyroid biopsy.
[2023-11-12 14:26] VITALS: BP 120/78; PULSE 60; RESP 16
== END 2023-11-12 14:16 | disposition home or self-care (01) ==
LOC: RADPROMAIN 13:01
PROVIDERS: ATTEND Otolaryngology
DX: E04.1 Nontoxic single thyroid nodule (principal)
CPT/HCPCS: 10005; 88173; 88305

== ENCOUNTER 2023-12-10 09:42 | Emergency (ER) | payer MEDICAID ==
[2023-12-10] MEDS: LIDOCAINE 4% PATCH TOPICAL ONE (10:17)
[2023-12-10] MEDS: ORPHENADRINE 30 MG/ML 2 ML VIAL IVP STA (10:23)
[2023-12-10] MEDS: MORPHINE SULFATE 4 MG/ML SYRINGE IVP STA (10:23)
[2023-12-10] MEDS: DEXAMETHASONE SOD PHOSPHATE 10 MG/ML 1 ML VIAL IVP STA (10:23)
[2023-12-10] MEDS: KETOROLAC 15 MG/ML 1 ML VIAL IVP STA (10:23)
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
[2023-12-10 11:19] VITALS: RESP 18; TEMP 98
--- NOTE | 2023-12-10 11:44 | XR ---
EXAMINATION TYPE: XR lumbar spine 2 or 3V DATE OF EXAM: 12/10/2023 11:00 AM CLINICAL INDICATION:Male, 48 years old with history of Pain; [facility] COMPARISON: None TECHNIQUE: XR lumbar spine 2 or 3V - Frontal, lateral and coned in L5-S1 lateral views of the spine. FINDINGS: No evidence of any acute osseous pathology. No evidence of loss of vertebral body height i s seen. There is normal alignment of the lumbar vertebral bodies. Scattered disc space narrowing. Mul tilevel marginal osteophyte formation throughout the visualized spine. There is facet joint arthropat hy throughout the spine. Scattered at least mild neural foraminal stenosis. IMPRESSION: 1. No acute fracture. 2. Mild multilevel disc degeneration.
--- NOTE | 2023-12-10 11:44 | XR ---
EXAMINATION TYPE: XR shoulder complete RT DATE OF EXAM: 12/10/2023 10:59 AM CLINICAL INDICATION:Male, 48 years old with history of Pain; COMPARISON: None TECHNIQUE: XR shoulder complete RT; examined in AP, internally rotated and scapular Y projections. FINDINGS: No evidence of acute osseous pathology, joint dislocation, or soft tissue swelling. The remaining po rtions of the visualized chest are unremarkable. IMPRESSION: No acute osseous pathology.
[2023-12-10] MEDS: HYDROmorphone 1 MG/ML 1 ML SYRINGE IVP STA (11:55)
[2023-12-10 12:39] VITALS: BP 115/77; PULSE 62
== END 2023-12-10 12:39 | disposition home or self-care (01) ==
LOC: EC 09:42
DX: S39.012A Strain of muscle, fascia and tendon of lower back, initial encounter (principal); M25.511 Pain in right shoulder; Z87.891 Personal history of nicotine dependence; X58.XXXA Exposure to other specified factors, initial encounter; Y92.096 Garden or yard of other non-institutional residence as the place of occurrence of the external cause
CPT/HCPCS: 72100; 73030; 99284; 96374; 96375 ×4; J2270; J1100; J2360; J1170; J1885

== ENCOUNTER 2024-04-30 22:58 | Emergency (ER) | payer MEDICAID ==
[2024-04-30] MEDS: SODIUM CHLORIDE 0.9% 1,000 ML IV ONE (23:58)
[2024-04-30] MEDS: KETOROLAC 15 MG/ML 1 ML VIAL IVP STA (23:59)
[2024-05-01] MEDS: ONDANSETRON 4 MG/2 ML VIAL IVP STA
[2024-05-01] MEDS: MORPHINE SULFATE 4 MG/ML SYRINGE IVP STA (00:01)
[2024-05-01 00:19] LABS: Basophils % (A) 0 %; Eosinophils # (A) 0.2 k/uL (0-0.7); Eosinophils % (A) 1 %; HCT 43.1 % (39.0-53.0); HGB 14.7 gm/dL (13.0-17.5); Lymphocytes # (A) 1.3 k/uL (1.0-4.8); Lymphocytes % (A) 8 %; MCH 32.7 pg (25.0-35.0); MCHC 34.2 g/dL (31.0-37.0); MCV 95.5 fL (80.0-100.0); Mean Platelet Volume 8.6; Monocytes # (A) 0.5 k/uL (0-1.0); Monocytes % (A) 3 %; Neutrophils # (A) 14.4 k/uL (1.3-7.7); Neutrophils % (A) 87 %; Platelet Count 231 k/uL (150-450); RBC 4.51 m/uL (4.30-5.90); RDW 11.3 % (11.5-15.5); WBC 16.6 k/uL (3.8-10.6)
[2024-05-01 00:24] LABS: Amorphous Sediment,Urine Occasional /hpf; Appearance,Urine Cloudy (Clear); Bacteria,Urine Rare /hpf; Bilirubin,Urine Negative (Negative); Blood,Urine Small (Negative); Color,Urine Light Yellow; Glucose,Urine (UA) Negative (Negative); Ketones,Urine Negative (Negative); Leukocyte Esterase,Urine Negative (Negative); Mucus,Urine Rare /hpf; Nitrite,Urine Negative (Negative); Protein,Urine Trace (Negative); RBC,Urine 5 /hpf (0-5); Specific Gravity,Urine 1.028 (1.001-1.035); Squamous Epithelial Cell,Urine <1 /hpf (0-4); Urobilinogen,Urine <2.0 mg/dL (<2.0); WBC,Urine 4 /hpf (0-5)
[2024-05-01 00:35] LABS: ALT 15 U/L (4-49); AST 19 U/L (17-59); African American GFR (CKD) 68 (>60 ml/min/1.73 sqM); Albumin 4.6 g/dL (3.5-5.0); Alkaline Phosphatase 57 U/L (38-126); Anion Gap 7 mmol/L; Blood Urea Nitrogen 32 mg/dL (9-20); Calcium 9.3 mg/dL (8.4-10.2); Carbon Dioxide 31 mmol/L (22-30); Chloride 100 mmol/L (98-107); Glucose 126 mg/dL (74-99); Non-African American GFR(CKD) 59 (>60 ml/min/1.73 sqM); Potassium 4.7 mmol/L (3.5-5.1); Sodium 138 mmol/L (137-145); Total Bilirubin 0.6 mg/dL (0.2-1.3); Total Protein 6.9 g/dL (6.3-8.2)
--- NOTE | 2024-05-01 01:06 | CT ---
EXAM: CT Abdomen and Pelvis Without Intravenous Contrast CLINICAL HISTORY: Left flank pain TECHNIQUE: Axial computed tomography images of the abdomen and pelvis without intravenous contrast. CTDI is 7.3 mGy and DLP is 421 mGy-cm. This CT exam was performed using one or more of the following dose reduction techniques: automated exposure control, adjustment of the mA and/or kV according to patient size, and/or use of iterative reconstruction technique. COMPARISON: No relevant prior studies available. FINDINGS: Lung bases: Unremarkable. No mass. No consolidation. ABDOMEN: Liver: Unremarkable. Gallbladder and bile ducts: Unremarkable. No calcified stones. No ductal dilation. Pancreas: Unremarkable. No ductal dilation. Spleen: Unremarkable. No splenomegaly. Adrenals: Unremarkable. No mass. Kidneys and ureters: Mild left hydroureteronephrosis. Punctate nonobstructive nephrolithiasis noted bilaterally. No right-sided hydronephrosis. Stomach and bowel: No evidence for bowel obstruction. Evaluation of the bowel mucosa is slightly limited without contrast; however, no definite focal asymmetry suggested. Mild stool burden. Scattered diverticulosis. No definitive diverticulitis. PELVIS: Appendix: A normal retrocecal appendix is noted posterior to the cecum in the right hemipelvis. Bladder: 3.3 mm calcification in the left posterior aspect of the bladder at the level of the UVJ. The bladder is otherwise unremarkable. Mild bladder wall prominence is presumed related to underdistention. No asymmetry. No stones. Reproductive: Unremarkable as visualized. ABDOMEN and PELVIS: Intraperitoneal space: Unremarkable. No free air. No significant fluid collection. Bones/joints: No acute fracture. No dislocation. Soft tissues: Unremarkable. Vasculature: Unremarkable. No abdominal aortic aneurysm. Lymph nodes: Unremarkable. No enlarged lymph nodes. IMPRESSION: 3.3 mm calcification in the left posterior aspect of the bladder at the level of the UVJ. There is mild proximal left hydroureteronephrosis. Findings are most consistent with transitioning distal ureteral stone or recently passed ureteral stone.
--- NOTE | 2024-05-01 01:36 | ED ---
Back Pain HPI - General Chief Complaint: Back Pain/Injury Stated Complaint: Left sided back pain Time Seen by Provider: 04/30/24 23:09 Source: patient - History of Present Illness Initial Comments: 48-year-old male presenting with chief complaint of left-sided flank pain. Started a few hours ago. Pain is sharp in nature, radiates into the lower abdomen. Patient has history of kidney stones and states that this feels similar. No dysuria or hematuria. Admits to nausea and vomiting. No injury or trauma. No loss of bowel or bladder control or saddle paresthesia. No fevers or chills. - Related Data Home Medications Medication Instructions Recorded Confirmed Dupilumab [Dupixent Pen] 200 mg SQ DIRECTED 11/05/23 11/12/23 Levothyroxine Sodium [Synthroid] 25 mcg PO DAILY 11/05/23 11/12/23 Previous Rx's Medication Instructions Recorded Cyclobenzaprine [Flexeril] 10 mg PO TID PRN #30 tab 12/10/23 Lidocaine 5% Patch [Lidoderm 5% 1 patch TOPICAL DAILY PRN #30 patch 12/10/23 Patch] Naproxen Sodium 550 mg PO TID PRN #30 tablet 12/10/23 Ketorolac [Toradol] 10 mg PO Q6HR PRN #12 tab 05/01/24 Ondansetron Odt [Zofran Odt] 4 mg PO Q8HR PRN #20 tab 05/01/24 Allergies Allergy/AdvReac Type Severity Reaction Status Date / Time No Known Allergies Allergy Verified 04/30/24 23:01 Review of Systems ROS Statement: Those systems with pertinent positive or pertinent negative responses have been documented in the HPI. ROS Other: All systems not noted in ROS Statement are negative. Past Medical History Past Medical History: Asthma, Thyroid Disorder Additional Past Medical History / Comment(s): Athletic Asthma as child, kidney stones,. History of Any Multi-Drug Resistant Organisms: None Reported Past Surgical History: Hernia Repair Additional Past Surgical History / Comment(s): HEMORROIDECTOMY Past Anesthesia/Blood Transfusion Reactions: No Reported Reaction, Motion Sickness Past Psychological History: Bipolar, Depression Smoking Status: Former smoker Past Alcohol Use History: Occasional Past Drug Use History: Marijuana - Past Family History Mother Family Medical History: Diabetes Mellitus, Hypertension, Thyroid Disorder Additional Family Medical History / Comment(s): Vertigo grandmother had cancer General Exam General appearance: alert, in distress (in pain) Head exam: Present: atraumatic, normocephalic, normal inspection Eye exam: Present: normal appearance, EOMI Neck exam: Present: normal inspection. Absent: meningismus Respiratory exam: Present: normal lung sounds bilaterally. Absent: respiratory distress, wheezes, rales, rhonchi, stridor Cardiovascular Exam: Present: regular rate, normal rhythm, normal heart sounds. Absent: systolic murmur, diastolic murmur, rubs, gallop, clicks GI/Abdominal exam: Present: soft. Absent: distended, tenderness, guarding, rebound, rigid Back exam: Present: normal inspection, tenderness Neurological exam: Present: alert, oriented X3 Psychiatric exam: Present: normal affect, normal mood Skin exam: Present: warm, dry Course Vital Signs 04/30/24 05/01/24 22:59 01:42 Temperature 97.3 F L 98.5 F Pulse Rate 70 72 Respiratory 18 16 Rate Blood Pressure 138/91 110/64 O2 Sat by Pulse 99 94 L Oximetry Medical Decision Making - Medical Decision Making Was pt. sent in by a medical professional or institution (Dr. PA, DUST MILL OPERATOR, urgent care, hospital, or jail...) When possible be specific @ -No Did you speak to anyone other than the patient for history (EMS, parent, family, police, friend...)? What history was obtained from this source @ -No Did you review nursing and triage notes (agree or disagree)? Why? @ -I reviewed and agree with nursing and triage notes Were old charts reviewed (outside hosp., previous admission, EMS record, old EKG, old radiological studies, urgent care reports/EKG's, jail records)? Report findings @ -No old charts were reviewed Differential Diagnosis (chest pain, altered mental status, abdominal pain women, abdominal pain men, vaginal bleeding, weakness, fever, dyspnea, syncope, headache, dizziness, GI bleed, back pain, seizure, CVA, palpatations, mental health, musculoskeletal)? @ - [facility] Differential Back Pain: Strain, zoster, cauda equina syndrome, epidural abscess, vertebral osteomyelitis, discitis, fracture, subluxation, disc herniation, DJD, spinal stenosis, dissection, AAA, pancreatitis, peptic ulcer disease, pyelonephritis, kidney stone this is not meant to be an all-inclusive list. EKG interpreted by me (3pts min.). @ -As above X-rays interpreted by me (1pt min.). @ -None done CT interpreted by me (1pt min.). @ -CT shows 3.3 mm calcification in the left posterior aspect of the bladder at the level of the UVJ. There is mild proximal left hydroureter nephrosis. Findings are most consistent with transitioning distal ureteral stone or recently passed ureteral stone U/S interpreted by me (1pt. min.). @ -None done What testing was considered but not performed or refused? (CT, X-rays, U/S, labs)? Why? @ -None What meds were considered but not given or refused? Why? @ -None Did you discuss the management of the patient with other professionals (professionals i.e. , PA, DUST MILL OPERATOR, lab, RT, psych nurse, social contact worker, thermal technician, teacher, dental officer, assistant case manager)? Give summary @ -No Was smoking cessation discussed for >3mins.? @ -No Was critical care preformed (if so, how long)? @ -No Were there social determinants of health that impacted care today? How? (Homelessness, low income, unemployed, alcoholism, drug addiction, transportation, low edu. Level, literacy, decrease access to med. care, long-term, rehab)? @ -No Was there de-escalation of care discussed even if they declined (Discuss DNR or withdrawal of care, Hospice)? DNR status @ -No What co-morbidities impacted this encounter? (DM, HTN, Smoking, COPD, CAD, Cancer, CVA, ARF, Chemo, Hep., AIDS, mental health diagnosis, sleep apnea, morbid obesity)? @ -None Was patient admitted / discharged? Hospital course, mention meds given and route, prescriptions, significant lab abnormalities, going to OR and other pertinent info. @ -48-year-old male presenting with chief complaint of left-sided flank pain. History and physical examination are conducted. Urine shows small blood. WBC 16.6, may be reactive secondary to vomiting. Mildly elevated BUN of 32 and creatinine of 1.41, patient is receiving IV fluids. CT shows 3.3 mm stone at the level of the UVJ. On reassessment patient reports significant improvement in his symptoms. He is educated on today's findings and treatment plan for home. Follow-up with PCP. Report back to ER with any new or worsening symptoms. Discussed return parameters and answered all questions. Patient conveyed verbal understanding and agreed to the plan. I discussed this case in detail with my attending Dr. Ramirez Undiagnosed new problem with uncertain prognosis? @ -No Drug Therapy requiring intensive monitoring for toxicity (Heparin, Nitro, Insulin, Cardizem)? @ -No Were any procedures done? @ -No Diagnosis/symptom? @ -Kidney stone Acute, or Chronic, or Acute on Chronic? @ -Acute Uncomplicated (without systemic symptoms) or Complicated (systemic symptoms)? @ -Uncomplicated Side effects of treatment? @ -No Exacerbation, Progression, or Severe Exacerbation? @ -No Poses a threat to life or bodily function? How? (Chest pain, USA, SC, pneumonia, PE, COPD, DKA, ARF, appy, cholecystitis, CVA, Diverticulitis, Homicidal, Suicidal, threat to staff... and all critical care pts) @ -Low likelihood - Lab Data Result diagrams: 05/01/24 00:03 05/01/24 00:03 Lab Results 05/01/24 05/01/24 05/01/24 Range/Units 00:03 00:03 00:03 WBC 16.6 H (3.8-10.6) k/uL RBC 4.51 (4.30-5.90) m/uL Hgb 14.7 (13.0-17.5) gm/dL Hct 43.1 (39.0-53.0) % MCV 95.5 (80.0-100.0) fL MCH 32.7 (25.0-35.0) pg MCHC 34.2 (31.0-37.0) g/dL RDW 11.3 L (11.5-15.5) % Plt Count 231 (150-450) k/uL MPV 8.6 Neutrophils % 87 % Lymphocytes % 8 % Monocytes % 3 % Eosinophils % 1 % Basophils % 0 % Neutrophils # 14.4 H (1.3-7.7) k/uL Lymphocytes # 1.3 (1.0-4.8) k/uL Monocytes # 0.5 (0-1.0) k/uL Eosinophils # 0.2 (0-0.7) k/uL Basophils # 0.0 (0-0.2) k/uL Sodium 138 (137-145) mmol/L Potassium 4.7 (3.5-5.1) mmol/L Chloride 100 (98-107) mmol/L Carbon Dioxide 31 H (22-30) mmol/L Anion Gap 7 mmol/L BUN 32 H (9-20) mg/dL Creatinine 1.41 H (0.66-1.25) mg/dL Est GFR (CKD-EPI)AfAm 68 (>60 ml/min/1.73 sqM) Est GFR (CKD-EPI)NonAf 59 (>60 ml/min/1.73 sqM) Glucose 126 H (74-99) mg/dL Calcium 9.3 (8.4-10.2) mg/dL Total Bilirubin 0.6 (0.2-1.3) mg/dL AST 19 (17-59) U/L ALT 15 (4-49) U/L Alkaline Phosphatase 57 (38-126) U/L Total Protein 6.9 (6.3-8.2) g/dL Albumin 4.6 (3.5-5.0) g/dL Urine Color Light Yellow Urine Appearance Cloudy (Clear) Urine pH 7.0 (5.0-8.0) Ur Specific [place] 1.028 (1.001-1.035) Urine Protein Trace H (Negative) Urine Glucose (UA) Negative (Negative) Urine Ketones Negative (Negative) Urine Blood Small H (Negative) Urine Nitrite Negative (Negative) Urine Bilirubin Negative (Negative) Urine Urobilinogen <2.0 (<2.0) mg/dL Ur Leukocyte Esterase Negative (Negative) Urine RBC 5 (0-5) /hpf Urine WBC 4 (0-5) /hpf Ur Squamous Epith Cells <1 (0-4) /hpf Amorphous Sediment Occasional H (None) /hpf Urine Bacteria Rare H (None) /hpf Urine Mucus Rare H (None) /hpf Disposition Clinical Impression: Kidney stone on left side Disposition: HOME SELF-CARE Condition: Good Instructions (If sedation given, give patient instructions): Kidney Stones (ED) Additional Instructions: Follow-up with PCP. Report back to ER with any new or worsening symptoms. Do not combine ketorolac with other NSAIDs such as ibuprofen (Motrin) or naproxen (Aleve) Prescriptions: Ketorolac [Toradol] 10 mg PO Q6HR PRN #12 tab PRN Reason: Pain Ondansetron Odt [Zofran Odt] 4 mg PO Q8HR PRN #20 tab PRN Reason: Nausea Is patient prescribed a controlled substance at d/c from ED?: No Referrals: Jamil Corcoran MD [Primary Care Provider] - 1-2 days Time of Disposition: 01:34
[2024-05-01 01:50] VITALS: BP 110/64; PULSE 72; RESP 16; TEMP 98.5
== END 2024-05-01 01:49 | disposition home or self-care (01) ==
LOC: EC 22:58
DX: N20.0 Calculus of kidney (principal); Z87.891 Personal history of nicotine dependence
CPT/HCPCS: 36415; 80053; 85025; 81001; 74176; 99284; 96374; 96361 ×2; 96375 ×2; J2270; J2405; J1885